=== PATIENT | male | born 1955 | race Two or more races ===

== ENCOUNTER 2024-07-11 06:25 | Inpatient (IN) | payer MEDICARE, OTHER ==
[~2024-07-11] VITALS: Ht 180.3 cm; Wt 90.3 kg
[~2024-07-11 06:25] MED LIST: EMPA1TAB3 PO
--- NOTE | 2024-07-11 07:35 | ED.PDOC ---
History of Present Illness HPI Comments 68 y/o M, Hx of bladder CA, DM, cholecystectomy, and thyroidectomy, presents with c/o non-radiating, right-sided flank pain for the past 2x days, today. Patient endorses on pain during initial onset being diffused 2x days ago prior to then localizing to his right flank area, with pain, suddenly, worsening, last night. Patients comments on Hx of left-nephrectomy that was removed, due to kidney cancer. He reports no additional relevant or pertinent Hx, such as recent injuries, sick contact, or spoiled food intake. He denies having any nausea, vomiting, urinary symptoms, fever, chills, or other associated symptoms or modifiers at this time. Chief Complaint: Flank Pain Time Seen by MD: 06:25 Reviewed Notes: Nurses Notes, Medications, Allergies Allergies: Coded Allergies: Sulfa Antibiotics (Verified Allergy, Unknown, 07/11/24) Information Source: Patient Mode of Arrival: Ambulatory Severity: Moderate Timing: Days Duration: Since onset Prehospital treatment: None Past Medical History PAST MEDICAL HISTORY: Cancer (left kidney and bladder CA), DM, Thyroid Surgical History: Cholecystectomy, Thyroidectomy Surgical History (Other): left nephrectomy s/p CA Family History Family History: Unknown Social History Smoker: Non-Smoker Alcohol: Denies ETOH Use Drugs: Denies Drug Use Lives In: Home Genitourinary: reports: flank pain All Other Systems: Reviewed and Negative (negative unless otherwise stated above or in HPI) Physical Exam General Appearance: Moderate Distress HEENT: Normal ENT Inspection, Pharynx Normal, TMs Normal Neck: Full Range of Motion, Non-Tender, Normal, Normal Inspection Respiratory: Chest Non-Tender, Lungs Clear, No Accessory Muscle Use, No Respiratory Distress, Normal Breath Sounds Cardiovascular: No Edema, No JVD, No Murmur, No Gallop, Normal Peripheral Pulses, Regular Rate/Rhythm Breast Exam: Deferred Gastrointestinal: No Organomegaly, Non Tender, No Pulsatile Mass, Normal Bowel Sounds, Soft Genitalia: Deferred Pelvic: Deferred Rectal: Deferred Extremities: No calf tenderness, Normal capillary refill, Normal inspection, Normal range of motion, Non-tender, No pedal edema Musculoskeletal : Apperance: Normal Neurologic: Alert, brick sorter II-XII nml as Tested, No Motor Deficits, Normal Affect, Normal Mood, No Sensory Deficits Cerebellar Function: Normal Reflexes: Normal Skin: Dry, Normal Color, Warm Peripheral Pulses: 3+ Radial (R), 3+ Radial (L) Lymphatic: No Adenopathy Was a procedure done? Was a procedure done?: No Differential Dx Considerations may include: nephrolithiasis, pyelonephritis, cystitis, musculoskeletal pain X-Ray, Labs, Meds, VS Vital Signs Date Time Temp Pulse Resp B/P (MAP) Pulse Ox O2 Delivery O2 Flow Rate FiO2 07/11/24 09:29 52 16 134/79 (97) 100 07/11/24 09:27 52 16 134/79 07/11/24 07:44 50 20 129/90 07/11/24 07:21 50 16 123/90 (101) 100 07/11/24 06:34 97.6 60 16 127/47 (73) 99 Lab Test 07/11/24 07:17 07/11/24 04:00 Range/Units White Blood Count 9.7 4.4-10.8 10^3/uL Red Blood Count 4.84 4.5-5.90 10^6/uL Hemoglobin 14.2 13.5-17.5 g/dL Hematocrit 41.4 41.0-53.0 % Mean Corpuscular Volume 85.5 80.0-100.0 fL Mean Corpuscular Hemoglobin 29.3 28.0-32.0 pg Mean Corpuscular Hemoglobin Concent 34.3 32.0-36.0 g/dL Red Cell Distribution Width 14.1 11.8-14.3 % Platelet Count 84 L 140-450 10^3/uL Mean Platelet Volume 9.3 6.9-10.8 fL Neutrophils (%) (Auto) 86.7 H 37.0-80.0 % Lymphocytes (%) (Auto) 4.5 L 10.0-50.0 % Monocytes (%) (Auto) 7.2 0.0-12.0 % Eosinophils (%) (Auto) 1.3 0.0-7.0 % Basophils (%) (Auto) 0.3 0.0-2.0 % Neutrophils # (Auto) 8.4 1.6-8.6 10 ^3/uL Lymphocytes # (Auto) 0.4 0.4-5.4 10 ^3/uL Monocytes # (Auto) 0.7 0-1.3 10 ^3/uL Eosinophils # (Auto) 0.1 0-0.8 10 ^3/uL Basophils # (Auto) 0 0-0.2 10 ^3/uL Nucleated Red Blood Cells 0.0 % Sodium Level 136 136-145 mmol/L Potassium Level 4.7 3.5-5.1 mmol/L Chloride Level 104 98-107 mmol/L Carbon Dioxide Level 22 20-31 mmol/L Anion Gap 10 5-15 Blood Urea Nitrogen 62 H 9-23 mg/dL Creatinine 5.65 H 0.700-1.30 mg/dL Glomerular Filtration Rate Calc 10 >90 mL/min BUN/Creatinine Ratio 11.0 10.0-20.0 Serum Glucose 125 H 74-106 mg/dL Hemoglobin A1c 5.6 <5.7 % A1C Calcium Level 9.6 8.7-10.4 mg/dL Triglycerides Level 104 < 150 mg/dL Cholesterol Level 165 < 200 mg/dL LDL Cholesterol 110 H < 100 mg/dL HDL Cholesterol 39 L 40-59 mg/dL Thyroid Stimulating Hormone (TSH) 2.26 0.55-4.78 uIU/mL Urine Color Light-yellow Yellow Urine Clarity Clear Clear Urine pH 5.0 5.0-9.0 Urine Specific [place] 1.011 1.001-1.035 Urine Protein Negative Negative Urine Ketones Negative Negative Urine Blood 2+ H Negative /uL Urine Nitrite Negative Negative Urine Bilirubin Negative Negative Urine Urobilinogen Normal Negative mg/dL Urine Leukocyte Esterase 1+ Negative /uL Urine RBC 3 0 - 3 /hpf Urine WBC 9 0 - 3 /hpf Urine Squamous Epithelial Cells Few <5 /hpf Urine Bacteria None seen None Seen /hpf Urine Glucose 3+ H Normal mg/dL Current Medications Medications (Trade) Dose Ordered Sig/Alice Route Start Time Stop Time Status Last Admin Ondansetron HCl (Zofran) 4 mg ONCE ONCE IV 07/11/24 07:00 07/11/24 07:01 DC 07/11/24 07:44 Sodium Chloride 1,000 ml @ 1,000 mls/hr Q1H ONCE IVB 07/11/24 07:00 07/11/24 07:59 DC 07/11/24 07:37 Morphine Sulfate 4 mg ONCE ONCE IV 07/11/24 07:00 07/11/24 07:01 DC 07/11/24 07:44 Patient alert. Complaining of right flank pain. Vitals stable. Answering all questions. Establish intravenous access. Was given fluids. WBC within normal limits. Hemoglobin within normal limits. Was given morphine. Was given Zofran. Continues to have abdominal pain. Reviewed his previous history. Explained to the patient. Continue cardiac monitoring. [address] [address] Ph: [phone] DIAGNOSTIC IMAGING Diagnostic Imaging Report : [id number] Signed PATIENT: NAILA BELLA ACCT: [id number] UNIT: [id number] : 1955 LOC: ER ROOM / BED: / AGE / SEX: 68 / M ADM STATUS: REG ER SERVICE 0945 ORDERING PHYSICIAN: MEGHANN DE LEON MD PROCEDURE(s): ABPL - CT AB PEL WO CON-NO ORAL OR IV REASON: stone ORDER NUMBER(s): [id number], ACCESSION NUMBER(s): [id number] Exam: CT CT AB PEL WO CON-NO ORAL OR IV History: stone Comparison Study: None available at time of dictation. Technique: Multidetector spiral CT of the abdomen and pelvis was performed from lung bases to pubic symphysis. Imaging was performed without intravenous contrast. Coronal and sagittal multiplanar reformats were obtained from the axial data set by the technologist. Radiation Dose : 1. Abdomen/Pelvis: CTDIvol 19.3 mGy, DLP 1297.6 mGy*cm. Findings: Evaluation of vasculature and solid organs is limited due to lack of intravenous contrast use. Lung Bases: Lung bases are clear. Visualized portions of the heart and pericardium are unremarkable. Liver: The liver is normal in size. No focal lesions. Gallbladder and Biliary Tree: The gallbladder is surgically absent. No intrahepatic or extrahepatic biliary ductal dilatation. Spleen: Unremarkable Pancreas: The pancreas is grossly unremarkable. Adrenal Glands: Unremarkable Kidneys: Mild right hydroureteronephrosis due to 9 mm obstructive proximal right ureteral calculus. Left kidney is absent. There is a cystic structure in the left retroperitoneum measuring 3.0 cm. GI tract: The stomach is grossly normal in appearance. No evidence of small bowel wall thickening or abnormal dilatation to suggest bowel obstruction. Sigmoid diverticulosis without acute diverticulitis. The appendix is visualized and is normal. Peritoneum/mesentery/retroperitoneum. No evidence of free intraperitoneal air. Trace pelvic free fluid. No evidence of suspicious lymphadenopathy. Abdominal Wall: Unremarkable. Vasculature: The visualized abdominal aorta is normal in size and caliber. Evaluation of abdominal and pelvic vessels is limited due to lack of intravenous contrast. Urinary Bladder: Grossly unremarkable for degree of distention. Pelvic Organs: Unremarkable Musculoskeletal: No aggressive focal bony lesions, acute fractures or dislocation. IMPRESSION: 1. Acute obstructive uropathy due to 9 mm proximal right ureteral calculus. 2. Status post left nephrectomy. Cystic structure in the left retroperitoneum could be related to sequela of the previous surgery. 3. Trace pelvic free fluid. 4. Sigmoid diverticulosis without acute diverticulitis. ATED BY: SAPNA WHEELER MD DICTATED DATE/TIME: 07/11/24 1029 SIGNED BY: SAPNA WHEELER MD SIGNED DATE/TIME: 07/11/24 1029 CC: Time of 1ST Reevaluation: 06:55 Reevaluation 1ST: Unchanged Patient Education/Counseling: Diagnosis, Treatment Family Education/Counseling: No Family Present Departure 1 Departure Time of Disposition: 07:43 Impression: Primary Impression: Acute abdominal pain Disposition: ADMITTED INPATIENT Admit to: Med Surg Condition: Guarded Critical Care Note Critical Care Time?: No Stability Stability form required: No Heart Score Heart Score: Heart Score Response (Comments) Value History N/A 0 EKG N/A 0 Age N/A 0 Risk Factors N/A 0 Troponin N/A 0 Total 0 I personally scribed for MEGHANN DE LEON MD ([email or web address]) on 07/11/24 at 07:35. Electronically submitted by Erich Johnson ([email or web address]). I personally scribed for MEGHANN DE LEON MD ([email or web address]) on 07/11/24 at 17:00. Electronically submitted by Erich Johnson ([email or web address]). MEGHANN DE LEON MD Jul 11, 2024 07:35
[2024-07-11 07:37] LABS: Basophils # (auto) 0 10 ^3/uL (0-0.2); Basophils % (auto) 0.3 % (0.0-2.0); Eosinophils # (auto) 0.1 10 ^3/uL (0-0.8); Eosinophils % (auto) 1.3 % (0.0-7.0); Hematocrit 41.4 % (41.0-53.0); Hemoglobin 14.2 g/dL (13.5-17.5); Lymphocytes # (auto) 0.4 10 ^3/uL (0.4-5.4); Lymphocytes % (auto) 4.5 % (10.0-50.0); Mean Corpuscular Hemoglobin 29.3 pg (28.0-32.0); Mean Corpuscular Hgb Conc. 34.3 g/dL (32.0-36.0); Mean Corpuscular Volume 85.5 fL (80.0-100.0); Monocytes # (auto) 0.7 10 ^3/uL (0-1.3); Monocytes % (auto) 7.2 % (0.0-12.0); Neutrophils # (auto) 8.4 10 ^3/uL (1.6-8.6); Neutrophils % (auto) 86.7 % (37.0-80.0); Platelet Count (auto) 84 10^3/uL (140-450); Red Blood Cells 4.84 10^6/uL (4.5-5.90); Red Cell Distribution Width 14.1 % (11.8-14.3); White Blood Cell 9.7 10^3/uL (4.4-10.8)
[2024-07-11] MEDS: SODIUM CHLORIDE 0.9% 1,000 ML IVB ONE (07:37)
[2024-07-11 07:40] LABS: Chloride 104 mmol/L (98-107); Potassium 4.7 mmol/L (3.5-5.1); Sodium 136 mmol/L (136-145)
[2024-07-11 07:41] LABS: Anion Gap 10 (5-15); Carbon Dioxide 22 mmol/L (20-31)
[2024-07-11 07:42] LABS: Calcium 9.6 mg/dL (8.7-10.4)
[2024-07-11] MEDS: ONDANSETRON HCL 4 MG/2 ML VIAL IV ONE (07:44)
[2024-07-11] MEDS: MORPHINE SULFATE 4 MG/ML SYR/VIAL IV ONE (07:44)
[2024-07-11 07:52] LABS: Blood Urea Nitrogen 62 mg/dL (9-23); Glucose 125 mg/dL (74-106)
[2024-07-11 09:29] LABS: Urine Bacteria None Seen /hpf (None Seen)
[2024-07-11 09:49] LABS: Urine Blood 2+ /uL (Negative); Urine Clarity Clear (Clear); Urine Color Light-Yellow (Yellow); Urine Protein, UAD Negative (Negative); Urine Specific Gravity 1.011 (1.001-1.035); Urine Squamous Epithelial Cell FEW /hpf (<5); Urine Urobilinogen Normal (Negative); Urine WBC 9 /hpf (0 - 3)
--- NOTE | 2024-07-11 10:31 | DVH ---
Exam: CT CT AB PEL WO CON-NO ORAL OR IV History: stone Comparison Study: None available at time of dictation. Technique: Multidetector spiral CT of the abdomen and pelvis was performed from lung bases to pubic s ymphysis. Imaging was performed without intravenous contrast. Coronal and sagittal multiplanar refor mats were obtained from the axial data set by the technologist. Radiation Dose : 1. Abdomen/Pelvis: CTDIvol 19.3 mGy, DLP 1297.6 mGy*cm. Findings: Evaluation of vasculature and solid organs is limited due to lack of intravenous contrast use. Lung Bases: Lung bases are clear. Visualized portions of the heart and pericardium are unremarkable. Liver: The liver is normal in size. No focal lesions. Gallbladder and Biliary Tree: The gallbladder is surgically absent. No intrahepatic or extrahepatic biliary ductal dilatation. Spleen: Unremarkable Pancreas: The pancreas is grossly unremarkable. Adrenal Glands: Unremarkable Kidneys: Mild right hydroureteronephrosis due to 9 mm obstructive proximal right ureteral calculus. L eft kidney is absent. There is a cystic structure in the left retroperitoneum measuring 3.0 cm. GI tract: The stomach is grossly normal in appearance. No evidence of small bowel wall thickening or abnormal dilatation to suggest bowel obstruction. Sigmoid diverticulosis without acute diverticuliti s. The appendix is visualized and is normal. Peritoneum/mesentery/retroperitoneum. No evidence of free intraperitoneal air. Trace pelvic free flui d. No evidence of suspicious lymphadenopathy. Abdominal Wall: Unremarkable. Vasculature: The visualized abdominal aorta is normal in size and caliber. Evaluation of abdominal a nd pelvic vessels is limited due to lack of intravenous contrast. Urinary Bladder: Grossly unremarkable for degree of distention. Pelvic Organs: Unremarkable Musculoskeletal: No aggressive focal bony lesions, acute fractures or dislocation. IMPRESSION: 1. Acute obstructive uropathy due to 9 mm proximal right ureteral calculus. 2. Status post left nephrectomy. Cystic structure in the left retroperitoneum could be related to seq uela of the previous surgery. 3. Trace pelvic free fluid. 4. Sigmoid diverticulosis without acute diverticulitis.
--- NOTE | 2024-07-11 11:12 | DVHHP2 ---
History of Present Illness Reason for Visit: Right flank pain History of Present Illness This 68-year-old male with past medical history of bladder and kidney carcinoma s/p left nephrectomy, diabetes type 2, thyroidectomy, PPM- sick sinus rhythm, and cholecystectomy, presented in the ED with a chief complaint of right sided flank pain. The patient reports right-sided flank pain started 2-3 days ago and has worsened last night associated with nausea for which prompted the patient to visit the emergency department. Past Medical History As stated in HPI Past Surgical History PPM Cholecystectomy Thyroidectomy Family History Reviewed, non-contributory to the management of this case. Past Social History The patient lives at home, denies smoking, alcohol or illicit drugs abuse. Review of Systems Constitutional: Yes: Malaise; No: Fever, Chills, Sweats, Weakness, Other Eyes: No: Pain, Vision change, Conjunctivae inflammation, Eyelid inflammation, Other, Redness ENT: No: Ear pain, Ear discharge, Nose pain, Nose discharge, Nose congestion, Mouth pain, Mouth swelling, Throat pain, Throat swelling, Other Respiratory: No: Cough, Dry, Shortness of breath, SOB with excertion, Wheezing, Hemoptysis, Pleuritic Pain, Sputum, Wheezing, Other Cardiovascular: No: Chest Pain, Palpitations, Orthopnea, Paroxysmal Noc. Dyspnea, Edema, Lt Headedness, Other Gastrointestinal: Nausea; No: Vomiting, Abdominal Pain, Diarrhea, Constipation, Melena, Hematochezia, Other Genitourinary: No Dysuria, No Frequency, No Incontinence; Hematuria; No Retention; Other (Right flank pain) Musculoskeletal: No: other, neck pain, shoulder pain, arm pain, back pain, hand pain, leg pain, foot pain Skin: No: Rash, Lesions, Jaundice, Bruising, Other Neurological: No: Weakness, Numbness, Incoordination, Change in speech, Confusion, Seizures, Other Allergies: Coded Allergies: Sulfa Antibiotics (Verified Allergy, Unknown, 07/11/24) Exam Vital Signs Vital Signs Date Time Temp Pulse Resp B/P (MAP) Pulse Ox O2 Delivery O2 Flow Rate FiO2 07/11/24 09:29 52 16 134/79 (97) 100 07/11/24 06:34 97.6 General Appearance: Alert, Oriented X3, Cooperative, mild distress HEENT: Atraumatic, PERRLA, EOMI, Mucous membr. moist/pink Respiratory: Clear to auscultation, Normal air movement Cardiovascular: Regular rate, Normal S1, Normal S2 Abdominal: Normal bowel sounds, Soft, No hepatospenomegaly, Other (Right CVA tenderness) Extremities: No clubbing, No cyanosis, No edema, Normal pulses, No tenderness/swelling Skin: No rashes, No breakdown, No significant lesion Neuro: Normal gait, Normal speech, Normal tone Psych/Mental Status: Mental status NL Labs/Xrays Labs Test 07/11/24 07:17 07/11/24 04:00 Range/Units White Blood Count 9.7 4.4-10.8 10^3/uL Red Blood Count 4.84 4.5-5.90 10^6/uL Hemoglobin 14.2 13.5-17.5 g/dL Hematocrit 41.4 41.0-53.0 % Mean Corpuscular Volume 85.5 80.0-100.0 fL Mean Corpuscular Hemoglobin 29.3 28.0-32.0 pg Mean Corpuscular Hemoglobin Concent 34.3 32.0-36.0 g/dL Red Cell Distribution Width 14.1 11.8-14.3 % Platelet Count 84 L 140-450 10^3/uL Mean Platelet Volume 9.3 6.9-10.8 fL Neutrophils (%) (Auto) 86.7 H 37.0-80.0 % Lymphocytes (%) (Auto) 4.5 L 10.0-50.0 % Monocytes (%) (Auto) 7.2 0.0-12.0 % Eosinophils (%) (Auto) 1.3 0.0-7.0 % Basophils (%) (Auto) 0.3 0.0-2.0 % Neutrophils # (Auto) 8.4 1.6-8.6 10 ^3/uL Lymphocytes # (Auto) 0.4 0.4-5.4 10 ^3/uL Monocytes # (Auto) 0.7 0-1.3 10 ^3/uL Eosinophils # (Auto) 0.1 0-0.8 10 ^3/uL Basophils # (Auto) 0 0-0.2 10 ^3/uL Nucleated Red Blood Cells 0.0 % Sodium Level 136 136-145 mmol/L Potassium Level 4.7 3.5-5.1 mmol/L Chloride Level 104 98-107 mmol/L Carbon Dioxide Level 22 20-31 mmol/L Anion Gap 10 5-15 Blood Urea Nitrogen 62 H 9-23 mg/dL Creatinine 5.65 H 0.700-1.30 mg/dL Glomerular Filtration Rate Calc 10 >90 mL/min BUN/Creatinine Ratio 11.0 10.0-20.0 Serum Glucose 125 H 74-106 mg/dL Calcium Level 9.6 8.7-10.4 mg/dL Urine Color Light-yellow Yellow Urine Clarity Clear Clear Urine pH 5.0 5.0-9.0 Urine Specific [place] 1.011 1.001-1.035 Urine Protein Negative Negative Urine Ketones Negative Negative Urine Blood 2+ H Negative /uL Urine Nitrite Negative Negative Urine Bilirubin Negative Negative Urine Urobilinogen Normal Negative mg/dL Urine Leukocyte Esterase 1+ Negative /uL Urine RBC 3 0 - 3 /hpf Urine WBC 9 0 - 3 /hpf Urine Squamous Epithelial Cells Few <5 /hpf Urine Bacteria None seen None Seen /hpf Urine Glucose 3+ H Normal mg/dL Assessment/Plan Assessment/Plan # acute renal failure, possible due to obstruction # right flank pain # acute obstructive uropathy due to 9 mm proximal right ureter calculus # hematuria # hx of bladder and left kidney carcinoma s/p left nephrectomy Admit to medical unit Urology consult Nephrology consult IV fluid Ultrasound of the kidney pending Pain control Tamsulosin Indwelling urinary catheter Strain urine Avoid anticoags/antiplatelets # diabetes type 2 ISS Check A1c # hypothyroidism s/p thyroidectomy check tsh # presence of permanent pacemaker # Hx of Sick Sinus Syndrome DVT prophylaxis with SCD Medical plan discussed with patient and spouse Plan discussed with: Patient Date of Service: Jul 11, 2024 Billing Provider: MY IBARRA Common Visit Codes: [id number] INP/OBS CARE (HIGH) MY IBARRA Jul 11, 2024 11:12
[2024-07-11] MEDS ORDERED: DEXTROSE (50%) 50ML SYRG IV PRN (11:15)
[2024-07-11] MEDS ORDERED: ONDANSETRON HCL 4 MG/2 ML VIAL IV PRN (11:15)
--- NOTE | 2024-07-11 12:00 | DVH ---
INDICATION: Right flank pain TECHNIQUE: Multiple real-time sonographic images of the kidneys and bladder were obtained. COMPARISON: CT of the abdomen pelvis same date FINDINGS: The right kidney measures 13.4 cm in length, which is normal in size. There is normal echogenicity of the right kidney. Punctate calculus in the lower pole measuring 0.4 cm. Mild right hydronephrosis l ikely related to right ureteral calculus not visualized on this study, visualized on CT same date. The left kidney is surgically absent. No large intraluminal masses are seen in the bladder. Prior to voiding the bladder volume measures volume 3.7 cc. Following voiding, the bladder volume residual measures 0 cc. IMPRESSION: 1. Nonobstructive 0.4 cm calculus in the right kidney lower pole. Mild right hydronephrosis. Right u reteral calculus seen on CT same date is not visualized which is likely the cause of the right hydron ephrosis. 2. Surgically absent left kidney.
[2024-07-11 12:05] LABS: Triglycerides 104 mg/dL (< 150)
[2024-07-11 12:07] LABS: Cholesterol 165 mg/dL (< 200); HDL Cholesterol 39 mg/dL (40-59); LDL Cholesterol 110 mg/dL (< 100)
[2024-07-11] MEDS: ACCU-CHEK COMFORT CURVE STRIP VI SCH (12:37)
[2024-07-11] MEDS: InsuLIN REG 1unit/0.01ml Soln (100units/ml) SC SCH (12:37)
[2024-07-11] MEDS: TAMSULOSIN HYDROCHLORIDE 0.4 MG CAP PO ONE (12:42)
[2024-07-11] MEDS: SODIUM CHLORIDE 0.9% 1,000 ML IV SCH (14:29)
--- NOTE | 2024-07-11 16:42 | DVHINCON2 ---
Date of service: Jul 11, 2024 Referring Physician Mary Roche NP Reason for Consultation MYRNA History of Present Illness Mr. Stafford is a 68-year-old male with known history of solitary right kidney, diabetes who presented for further evaluation and management of acute onset of right-sided flank pain. His course in the emergency department notable for diagnostics that revealed obstructive uropathy of right kidney due to nephrolithiasis. His serum creatinine is elevated to the 5 range. He was seen in the emergency department resting comfortably. he denies history of gross hematuria, hemoptysis. + Subjective fever. Past Medical History bladder CA Renal cell carcinoma status post left nephrectomy Diabetes Past Surgical History as stated above Allergies: Coded Allergies: Sulfa Antibiotics (Verified Allergy, Unknown, 07/11/24) Current Medications Current Medications Medications (Trade) Dose Ordered Sig/Alice Route PRN Reason Start Time Stop Time Status Last Admin Acetaminophen/ Hydrocodone Bitart ([place] 5/325MG Tab) 1 tab Q4HP PRN PO MODERATE PAIN (4-6 PAIN SCALE) 07/11/24 11:15 Ondansetron HCl (Zofran) 4 mg Q4HP PRN IV NAUSEA / VOMITING 07/11/24 11:15 Acetaminophen (Tylenol Tablet) 650 mg Q6HP PRN PO PAIN SCALE 1-3 OR TEMP>100.4 07/11/24 11:15 Morphine Sulfate 2 mg Q4HPRN PRN IV SEVERE PAIN (7-10 PAIN SCALE) 07/11/24 11:15 Tamsulosin HCl (Flomax) 0.4 mg QPM PO 07/12/24 18:00 Sodium Chloride 1,000 ml @ 100 mls/hr Q10H IV 07/11/24 11:15 Diagnostic Test (Pha) (Accu-Chek Comfort Curve T) 1 strip ACHS 07/11/24 11:30 07/11/24 12:42 Insulin Human Regular (InsuLIN R) ACHS SC 07/11/24 11:30 Dextrose 50 ml UD PRN IV Blood Sugar LESS THAN 60 07/11/24 11:15 Review of Systems as per history of present illness otherwise all systems reviewed and are noncontributory H&P Exam Vital Signs/I&O Vital Sign Date Time Temp Pulse Resp B/P (MAP) Pulse Ox O2 Delivery O2 Flow Rate FiO2 07/11/24 09:29 52 16 134/79 (97) 100 07/11/24 06:34 97.6 Physical Exam gen: nad, nc lungs: cta cvs: no rub abd: soft ext: no edema skin: no rash Labs/Diagnostic Data Labs/Diagnostic Data Laboratory Tests Test 07/11/24 12:32 07/11/24 07:17 07/11/24 04:00 Range/Units POC Glucose 90 70-106 mg/dl White Blood Count 9.7 4.4-10.8 10^3/uL Red Blood Count 4.84 4.5-5.90 10^6/uL Hemoglobin 14.2 13.5-17.5 g/dL Hematocrit 41.4 41.0-53.0 % Mean Corpuscular Volume 85.5 80.0-100.0 fL Mean Corpuscular Hemoglobin 29.3 28.0-32.0 pg Mean Corpuscular Hemoglobin Concent 34.3 32.0-36.0 g/dL Red Cell Distribution Width 14.1 11.8-14.3 % Platelet Count 84 L 140-450 10^3/uL Mean Platelet Volume 9.3 6.9-10.8 fL Neutrophils (%) (Auto) 86.7 H 37.0-80.0 % Lymphocytes (%) (Auto) 4.5 L 10.0-50.0 % Monocytes (%) (Auto) 7.2 0.0-12.0 % Eosinophils (%) (Auto) 1.3 0.0-7.0 % Basophils (%) (Auto) 0.3 0.0-2.0 % Neutrophils # (Auto) 8.4 1.6-8.6 10 ^3/uL Lymphocytes # (Auto) 0.4 0.4-5.4 10 ^3/uL Monocytes # (Auto) 0.7 0-1.3 10 ^3/uL Eosinophils # (Auto) 0.1 0-0.8 10 ^3/uL Basophils # (Auto) 0 0-0.2 10 ^3/uL Nucleated Red Blood Cells 0.0 % Sodium Level 136 136-145 mmol/L Potassium Level 4.7 3.5-5.1 mmol/L Chloride Level 104 98-107 mmol/L Carbon Dioxide Level 22 20-31 mmol/L Anion Gap 10 5-15 Blood Urea Nitrogen 62 H 9-23 mg/dL Creatinine 5.65 H 0.700-1.30 mg/dL Glomerular Filtration Rate Calc 10 >90 mL/min BUN/Creatinine Ratio 11.0 10.0-20.0 Serum Glucose 125 H 74-106 mg/dL Hemoglobin A1c 5.6 <5.7 % A1C Calcium Level 9.6 8.7-10.4 mg/dL Triglycerides Level 104 < 150 mg/dL Cholesterol Level 165 < 200 mg/dL LDL Cholesterol 110 H < 100 mg/dL HDL Cholesterol 39 L 40-59 mg/dL Thyroid Stimulating Hormone (TSH) 2.26 0.55-4.78 uIU/mL Urine Color Light-yellow Yellow Urine Clarity Clear Clear Urine pH 5.0 5.0-9.0 Urine Specific [place] 1.011 1.001-1.035 Urine Protein Negative Negative Urine Ketones Negative Negative Urine Blood 2+ H Negative /uL Urine Nitrite Negative Negative Urine Bilirubin Negative Negative Urine Urobilinogen Normal Negative mg/dL Urine Leukocyte Esterase 1+ Negative /uL Urine RBC 3 0 - 3 /hpf Urine WBC 9 0 - 3 /hpf Urine Squamous Epithelial Cells Few <5 /hpf Urine Bacteria None seen None Seen /hpf Urine Glucose 3+ H Normal mg/dL Assessment IMP: 1) MYRNA insetting of obstructive uropathy of solitary kidney 2) nephrolithiasis 3) CKD IIIb? 2/2 Solitary kidney / DM II 4) DM II REC: - Agree with supportive measures, IV fluids, pain control - Urology evaluation for definitive plan of care - Avoidance of NSAIDs, intravenous contrast studies if able - Currently without urgent indication for dialysis, we will continue to monitor closely. Thank you for the consultation. Plan discussed with: Other LOLIS PAIZ MD Jul 11, 2024 16:42
[2024-07-11 21:00] VITALS: BP 119/59; PULSE 58; RESP 20; TEMP 98.2; O2SAT 98
[2024-07-11 22:51] VITALS: PULSE 55; RESP 10; O2SAT 97
[2024-07-12] VITALS (11 sets, daily range): BP systolic 104–129; BP diastolic 58–76; PULSE 50–60; RESP 12–21; TEMP 97.6–98.6; O2SAT 95–100
[2024-07-12] MEDS ORDERED: EMPA1TAB PO (00:59)
[2024-07-12 06:13] LABS: Basophils # (auto) 0 10 ^3/uL (0-0.2); Basophils % (auto) 0.3 % (0.0-2.0); Eosinophils # (auto) 0.1 10 ^3/uL (0-0.8); Eosinophils % (auto) 1.5 % (0.0-7.0); Hematocrit 34.2 % (41.0-53.0); Lymphocytes # (auto) 0.4 10 ^3/uL (0.4-5.4); Lymphocytes % (auto) 7.8 % (10.0-50.0); Mean Corpuscular Hemoglobin 29.4 pg (28.0-32.0); Mean Corpuscular Hgb Conc. 35.1 g/dL (32.0-36.0); Mean Corpuscular Volume 83.6 fL (80.0-100.0); Monocytes # (auto) 0.5 10 ^3/uL (0-1.3); Monocytes % (auto) 9.5 % (0.0-12.0); Neutrophils # (auto) 4.3 10 ^3/uL (1.6-8.6); Neutrophils % (auto) 80.9 % (37.0-80.0); Platelet Count (auto) 68 10^3/uL (140-450); Red Blood Cells 4.09 10^6/uL (4.5-5.90); Red Cell Distribution Width 13.7 % (11.8-14.3); White Blood Cell 5.3 10^3/uL (4.4-10.8)
[2024-07-12 06:47] LABS: Alanine Aminotransferase 11 U/L (7-40); Albumin 3.4 g/dL (3.2-4.8); Alkaline Phosphatase 61 U/L (46-116); Anion Gap 13 (5-15); BUN/Creatinine Ratio 10.4 (10.0-20.0); Calcium 8.8 mg/dL (8.7-10.4); Chloride 101 mmol/L (98-107); Potassium 4.4 mmol/L (3.5-5.1)
[2024-07-12 06:48] LABS: Bilirubin, Total 1.2 mg/dL (0.2-1.0)
[2024-07-12 06:53] LABS: Carbon Dioxide 18 mmol/L (20-31); Glucose 118 mg/dL (74-106); Sodium 132 mmol/L (136-145)
[2024-07-12 06:54] LABS: Aspartate Aminotransferase 12 U/L (13-40); Total Protein 5.4 g/dL (5.7-8.2)
[2024-07-12 06:55] LABS: Blood Urea Nitrogen 86 mg/dL (9-23)
--- NOTE | 2024-07-12 09:18 | DVHINCON2 ---
Date of service: Jul 12, [address] Zazueta Reason for Consultation obstructive uropathy History of Present Illness History Source: Patient, Spouse/Significant Other, RN Notes, MD Notes, Old Records Exam Limitations: No limitations HPI 68 yo male with PMH of kidney and bladder cancer s/p left nephroureterectomy 2019 in the [facility], by Dr. Gonzalez. Last surveillance cystoscopy was 02/2024 ad there was no recurrence noted. He is visiting family in this area and presented to ER with c/o of sudden left flank pain. On arrival he was noted to have poor urine output and elevated creatinine. CT A/P NC showed an obstructing stone in the right proximal ureter approx 9 mm with moderate hydro. A head was placed with some difficulty and there has been no urine output. Bladder scan was performed showing 3 mls. He is seen in 285a with his at the bedside. He denies pain at this time. He c/o chest pressure and headache. He was seen at [facility] in April for gross hematuria and CT at that time showed a lower pole stone measuring 8 mm on the right. Prostate is 4.5 cm. Baseline creatinine is 1.3 per labs viewed on [employer]. He is pending right nephrostomy placement scheduled for this afternoon. I attempted to reach Dr. Gonzalez at [phone] for courtesy call regarding mutual patient. Home Meds Reported Medications Empagliflozin (Jardiance) 10 Mg Tab, 10 MG PO, TAB 07/12/24 Past Medical History Hemotology/Oncology: Cancer Renal/: Benign prostatic enlarg., Hematuria, Other (kidney and bladder cancer) Patient Family History: Diabetes mellitus G8 FATHER Review of Systems Comments see HPI H&P Exam Vital Signs Vital Signs Date Time Temp Pulse Resp B/P (MAP) Pulse Ox O2 Delivery O2 Flow Rate FiO2 07/12/24 05:00 97.6 50 16 125/64 (84) 100 97.6 07/12/24 00:18 Room Air* 0 21 General Appeara: Well developed, Well nourished, Normal Appearance Pulmonary/Respiratory: Normal inspection, Normal breath sounds, Chest non- tender, Lungs clear Cardiovascular/Chest: Normal inspection, Regular rate, Normal Rhythm Abdominal Exam: Normal bowel sounds, Soft, No tenderness, No hepatospenomegaly, No masses Rectal Exam: Deferred Back Exam: Normal inspection Male Genital Exam: Normal genitalia Neuro/Mental St: Alert, Oriented Appearance: Appropriate appearance, Appropriate insight Eye contact/ Speech: Cooperative, Good eye contact, Normal speech Skin Exam: Normal inspection, Normal color, Warm/dry Labs/Xrays [facility] [address] [place] [id number] Ph: [phone] DIAGNOSTIC IMAGING Diagnostic Imaging Report : [id number] Signed PATIENT: ROSHAN BELLAT: [id number] UNIT: [id number] : 1955 LOC: ER ROOM / BED: / AGE / SEX: 68 / M ADM STATUS: REG ER SERVICE ORDERING PHYSICIAN: MEGHANN DE LEON MD PROCEDURE(s): ABPL - CT AB PEL WO CON-NO ORAL OR IV REASON: stone ORDER NUMBER(s): [id number], ACCESSION NUMBER(s): [id number] Exam: CT CT AB PEL WO CON-NO ORAL OR IV History: stone Comparison Study: None available at time of dictation. Technique: Multidetector spiral CT of the abdomen and pelvis was performed from lung bases to pubic symphysis. Imaging was performed without intravenous contrast. Coronal and sagittal multiplanar reformats were obtained from the ax ia data set by the technologist. Radiation Dose : 1. Abdomen/Pelvis: CTDIvol 19.3 mGy, DLP 1297.6 mGy*cm. Findings: Evaluation of vasculature and solid organs is limited due to lack of intravenous contrast use. Lung Bases: Lung bases are clear. Visualized portions of the heart and pericardium are unremarkable. Liver: The liver is normal in size. No focal lesions. Gallbladder and Biliary Tree: The gallbladder is surgically absent. No intrahepatic or extrahepatic biliary ductal dilatation. Spleen: Unremarkable Pancreas: The pancreas is grossly unremarkable. Adrenal Glands: Unremarkable Kidneys: Mild right hydroureteronephrosis due to 9 mm obstructive proximal right ureteral calculus. Left kidney is absent. There is a cystic structure in the left retroperitoneum measuring 3.0 cm. GI tract: The stomach is grossly normal in appearance. No evidence of small bowel wall thickening or abnormal dilatation to suggest bowel obstruction. Sigmoid diverticulosis without acute diverticulitis. The appendix is visualized and is normal. Peritoneum/mesentery/retroperitoneum. No evidence of free intraperitoneal air. Trace pelvic free fluid. No evidence of suspicious lymphadenopathy. Abdominal Wall: Unremarkable. Vasculature: The visualized abdominal aorta is normal in size and caliber. Evaluation of abdominal and pelvic vessels is limited due to lack of intravenous contrast. Urinary Bladder: Grossly unremarkable for degree of distention. Pelvic Organs: Unremarkable Musculoskeletal: No aggressive focal bony lesions, acute fractures or dislocation. IMPRESSION: 1. Acute obstructive uropathy due to 9 mm proximal right ureteral calculus. 2. Status post left nephrectomy. Cystic structure in the left retroperitoneum could be related to sequela of the previous surgery. 3. Trace pelvic free fluid. 4. Sigmoid diverticulosis without acute diverticulitis. ATED BY: SAPNA WHEELER MD DICTATED DATE/TIME: 07/11/24 102 SIGNED BY: SAPNA WHEELER MD SIGNED DATE/TIME: 07/11/24 1029 CC: [place] [id number] Ph: [phone] DIAGNOSTIC IMAGING Diagnostic Imaging Report : [id number] Signed PATIENT: JOSE BELLA: [id number] UNIT: [id number] : 1955 LOC: TELE ROOM / BED: [address] [place] [address] AGE / SEX: 68 / M ADM STATUS: ADM IN SERVICE 110 ORDERING PHYSICIAN: MY [employer] PROJECT MANAGER PROCEDURE(s): KIDUS - KIDNEY REASON: Right flank pain ORDER NUMBER(s): [id number], ACCESSION NUMBER(s): [id number] INDICATION: Right flank pain TECHNIQUE: Multiple real-time sonographic images of the kidneys and bladder were obtained. COMPARISON: CT of the abdomen pelvis same date FINDINGS: The right kidney measures 13.4 cm in length, which is normal in size. There is normal echogenicity of the right kidney. Punctate calculus in the lower pole measuring 0.4 cm. Mild right hydronephrosis likely related to right ureteral calculus not visualized on this study, visualized on CT same date. The left kidney is surgically absent. No large intraluminal masses are seen in the bladder. Prior to voiding the bladder volume measures volume 3.7 cc. Following voiding, the bladder volume residual measures 0 cc. IMPRESSION: 1. Nonobstructive 0.4 cm calculus in the right kidney lower pole. Mild right hydronephrosis. Right ureteral calculus seen on CT same date is not visualized which is likely the cause of the right hydronephrosis. 2. Surgically absent left kidney. ATED BY: SAPNA WHEELER MD DICTATED DATE/TIME: 07/11/24 1157 SIGNED BY: SAPNA WHEELER MD SIGNED DATE/TIME: 07/11/24 1157 CC: Labs Test 07/12/24 05:49 07/12/24 05:07 07/11/24 07:17 07/11/24 04:00 Range/Units POC Glucose 119 H 70-106 mg/dl White Blood Count 5.3 # 4.4-10.8 10^3/uL Red Blood Count 4.09 L 4.5-5.90 10^6/uL Hemoglobin 12.0 #L 13.5-17.5 g/dL Hematocrit 34.2 #L 41.0-53.0 % Mean Corpuscular Volume 83.6 80.0-100.0 fL Mean Corpuscular Hemoglobin 29.4 28.0-32.0 pg Mean Corpuscular Hemoglobin Concent 35.1 32.0-36.0 g/dL Red Cell Distribution Width 13.7 11.8-14.3 % Platelet Count 68 L 140-450 10^3/uL Mean Platelet Volume 10.5 6.9-10.8 fL Neutrophils (%) (Auto) 80.9 H 37.0-80.0 % Lymphocytes (%) (Auto) 7.8 L 10.0-50.0 % Monocytes (%) (Auto) 9.5 0.0-12.0 % Eosinophils (%) (Auto) 1.5 0.0-7.0 % Basophils (%) (Auto) 0.3 0.0-2.0 % Neutrophils # (Auto) 4.3 1.6-8.6 10 ^3/uL Lymphocytes # (Auto) 0.4 0.4-5.4 10 ^3/uL Monocytes # (Auto) 0.5 0-1.3 10 ^3/uL Eosinophils # (Auto) 0.1 0-0.8 10 ^3/uL Basophils # (Auto) 0 0-0.2 10 ^3/uL Nucleated Red Blood Cells 0.0 % Sodium Level 132 L 136-145 mmol/L Potassium Level 4.4 3.5-5.1 mmol/L Chloride Level 101 98-107 mmol/L Carbon Dioxide Level 18 L 20-31 mmol/L Anion Gap 13 5-15 Blood Urea Nitrogen 86 #*H 9-23 mg/dL Creatinine 8.30 #H 0.700-1.30 mg/dL Glomerular Filtration Rate Calc 6 >90 mL/min BUN/Creatinine Ratio 10.4 10.0-20.0 Serum Glucose 118 H 74-106 mg/dL Calcium Level 8.8 8.7-10.4 mg/dL Total Bilirubin 1.2 H 0.2-1.0 mg/dL Aspartate Amino Transferase (AST) 12 L 13-40 U/L Alanine Aminotransferase (ALT) 11 7-40 U/L Alkaline Phosphatase 61 46-116 U/L Total Protein 5.4 L 5.7-8.2 g/dL Albumin 3.4 3.2-4.8 g/dL Hemoglobin A1c 5.6 <5.7 % A1C Triglycerides Level 104 < 150 mg/dL Cholesterol Level 165 < 200 mg/dL LDL Cholesterol 110 H < 100 mg/dL HDL Cholesterol 39 L 40-59 mg/dL Thyroid Stimulating Hormone (TSH) 2.26 0.55-4.78 uIU/mL Urine Color Light-yellow Yellow Urine Clarity Clear Clear Urine pH 5.0 5.0-9.0 Urine Specific [place] 1.011 1.001-1.035 Urine Protein Negative Negative Urine Ketones Negative Negative Urine Blood 2+ H Negative /uL Urine Nitrite Negative Negative Urine Bilirubin Negative Negative Urine Urobilinogen Normal Negative mg/dL Urine Leukocyte Esterase 1+ Negative /uL Urine RBC 3 0 - 3 /hpf Urine WBC 9 0 - 3 /hpf Urine Squamous Epithelial Cells Few <5 /hpf Urine Bacteria None seen None Seen /hpf Urine Glucose 3+ H Normal mg/dL Assessment/Plan Problem List: (1) Hydronephrosis with renal and ureteral calculous obstruction (2) MYRNA (acute kidney injury) (3) Renal colic on right side (4) Solitary right kidney Plan NPO consult IR for stat placement of right PCN outpt U[facility] TBA when creatinine normalizes serial BMP MYRNA management per nephrology POC d/w and patient at the bedside, all questions were answered. will follow more than 45 mins for this consultation of which 50% was face to face discussion of plan and review of labs and imaging. Plan discussed with: Patient NICOLETTE KENNY [employer] INS[employer] AGENT Jul 12, 2024 09:18
--- NOTE | 2024-07-12 12:44 | DVHPN2 ---
Reviewed: Care Plan, H&P, Labs, Medications, Previous Orders, Radiology Changes from previous H/P or p: No Changes Eyes: No Pain, No Vision change, No Conjunctivae inflammation, No Eyelid inflammation, No Other, No Redness ENT: No Ear pain, No Ear discharge, No Nose pain, No Nose discharge, No Nose congestion, No Mouth pain, No Mouth swelling, No Throat pain, No Throat swelling, No Other Cardiovascular: No Chest Pain, No Palpitations, No Orthopnea, No Paroxysmal Noc. Dyspnea, No Edema, No Lt Headedness, No Other Respiratory: No Cough, No Dry, No Shortness of breath, No SOB with excertion, No Wheezing, No Hemoptysis, No Pleuritic Pain, No Sputum, No Other Gastrointestinal: Nausea; No Vomiting, No Abdominal Pain, No Diarrhea, No Constipation, No Melena, No Hematochezia, No Other Genitourinary: No Dysuria, No Frequency, No Incontinence; Hematuria; No Retention; Other (Right flank pain) Musculoskeletal: No other, No neck pain, No shoulder pain, No arm pain, No back pain, No hand pain, No leg pain, No foot pain Skin: No Rash, No Lesions, No Jaundice, No Bruising, No Other Objective Vitals Vital Signs Date Time Temp Pulse Resp B/P (MAP) Pulse Ox O2 Delivery O2 Flow Rate FiO2 07/12/24 09:00 98.6 60 14 126/69 (88) 99 98.6 07/12/24 00:18 Room Air* 0 21 Intake/Output Intake and Output 07/12/24 07:00 Intake Total 1150 ml Balance 1150 ml Intake Oral 150 ml IV Total 1000 ml Medications Current Medications Medications Dose Ordered Sig/Alice Route Start Time Stop Time Status Last Admin Dose Admin Acetaminophen/ Hydrocodone Bitart 1 tab Q4HP PRN PO 07/11/24 11:15 Ondansetron HCl 4 mg Q4HP PRN IV 07/11/24 11:15 Acetaminophen 650 mg Q6HP PRN PO 07/11/24 11:15 Morphine Sulfate 2 mg Q4HPRN PRN IV 07/11/24 11:15 Sodium Chloride 1,000 ml @ 100 mls/hr Q10H IV 07/11/24 11:15 07/11/24 21:17 100 MLS/HR Diagnostic Test (Pha) 1 strip ACHS 07/11/24 11:30 07/12/24 07:00 1 STRIP Insulin Human Regular ACHS SC 07/11/24 11:30 Dextrose 50 ml UD PRN IV 07/11/24 11:15 Laboratory Results Laboratory Tests 07/12/24 05:07 Chemistry Test 07/12/24 05:07 Albumin 3.4 g/dL (3.2-4.8) Calcium Level 8.8 mg/dL (8.7-10.4) Total Protein 5.4 g/dL (5.7-8.2) L Coagulation Test 07/12/24 05:07 Prothrombin Time Pending Prothrombin Time INR Pending Activated Partial Thromboplast Time Pending LFT Test 07/12/24 05:07 Alanine Aminotransferase (ALT) 11 U/L (7-40) Alkaline Phosphatase 61 U/L (46-116) Aspartate Amino Transferase (AST) 12 U/L (13-40) L Total Bilirubin 1.2 mg/dL (0.2-1.0) H Urinalysis Test 07/11/24 04:00 Urine Color Light-yellow (Yellow) Urine Clarity Clear (Clear) Urine pH 5.0 (5.0-9.0) Urine Specific [place] 1.011 (1.001-1.035) Urine Protein Negative (Negative) Urine Ketones Negative (Negative) Urine Blood 2+ /uL (Negative) H Urine Nitrite Negative (Negative) Urine Bilirubin Negative (Negative) Urine Urobilinogen Normal mg/dL (Negative) Urine Leukocyte Esterase 1+ /uL (Negative) Urine RBC 3 /hpf (0 - 3) Urine WBC 9 /hpf (0 - 3) Urine Squamous Epithelial Cells Few /hpf (<5) Urine Bacteria None seen /hpf (None Seen) Urine Glucose 3+ mg/dL (Normal) H Microbiology Microbiology Date/Time Source Procedure Growth Status 07/11/24 04:00 Voided Urine Urine Culture - Preliminary Resulted Labs and/or images reviewed: Labs reviewed by me, Image(s) reviewed by me Assessment/Plan Assessment/Plan Acute right flank pain Acute obstructive uropathy secondary to 9 mm right proximal ureteral stone: Consult for Urology Dr. [place], advised stat right nephrostomy tube placement by radiologist History of bladder cancer and left kidney cancer status post left nephrectomy Diabetes Hypothyroidism Sick sinus syndrome status post permanent pacemaker MYRNA secondary to obstructive uropathy: Consult by Dr. Zazueta appreciated, does not need emergency dialysis at the present time Time Spent 65 minutes Condition guarded Prognosis poor Patient is full code Advanced care planning time 20 minutes Patient's Zayra [phone] at bedside They are visiting here from [place] Plan discussed with: Patient Date of Service: Jul 12, 2024 Billing Provider: CORAZON FAJARDO MD Common Visit Codes: 02963-[id number] CARE 30-74 MIN CORAZON FAJARDO MD Jul 12, 2024 12:44
[2024-07-12] MEDS: LORazepam 2MG/ML-1ML VIAL IV ONE (13:15)
[2024-07-12 13:27] LABS: INR 1.03 (0.9-1.15); Prothrombin Time 10.9 sec (9.3-11.8)
[2024-07-12] MEDS: IOHEXOL 350 MG/ML 100ML IJ ONE (14:05)
[2024-07-12] MEDS: MORPHINE SULFATE INJ 2 MG/ml SYRG IV PRN (14:30)
[2024-07-12] MEDS: fentaNYL CITRATE 100 MCG/2 ML VL ONE (14:44)
[2024-07-12] MEDS: LIDOCAINE 2%HCL (LOCAL ANESTH.) INJ 20ML MDV ONE (14:44)
[2024-07-12] MEDS: MIDAZOLAM HCL 2MG/2ML 2ml VIAL (1mg/ml) ONE (14:44)
[2024-07-12] MEDS: cefTRIAXone 1GM/50ML D5W 50 ML IV ONE (14:49)
--- NOTE | 2024-07-12 15:43 | DVH ---
XY PERCUTANEOUS NEPHROSTOMY, HISTORY: NEPH TUBE PROCEDURE: Informed consent was obtained. The patient was placed on the fluoroscopic table in a prone position and IV sedation administered. 1 gram of Ceftriaxone was given. The right flank was prepped with chlorhexidine which was allowed to dry and draped in the usual sterile fashion. Time out was per formed. and the soft tissues infiltrated with 1% lidocaine local anesthetic. Utilizing ultrasound tereso dance, a 21 gauge Accu Stick needle was advanced from a posterolateral approach into an lower pole ca lyx, and a small amount of contrast was injected under fluoroscopy to confirm positioning. Over a man dril wire, exchange was made to a non-vascular access set, through which was advanced an 0.035 wire. Following serial dilation, an 8.5 Tajik multipurpose nephrostomy catheter was placed with tip pigtai led within the renal pelvis. Position was confirmed with antegrade nephrostogram. The catheter was se cured in place and connected to gravity drainage. A sterile dressing was applied. No immediate compli cation was identified. DAP FLUOROSCOPY TIME: minutes. CONTRAST USED: mL Isovue 300. SEDATION: Dr. Abigail Nassar was personally responsible for the administration of moderate sedation during the procedure performed, including the use of an independent trained observer who had no other duties during the procedure. The drugs utilized were IV fentanyl and versed (see nursing log for details). The total time of supervision by the attending physician was approximately minutes. FINDINGS: Moderately dilated right renal collecting system involving the calyces/renal pelvis/ureter to the level of the proximal ureter. New 8.5 Tajik nephrostomy tube via a posterior lower pole calyc eal access, with loop coiled within the renal pelvis. IMPRESSION: Right hydronephrosis due to obstructive proximal ureteral stone, status post placement of 8.5 Tajik right percutaneous nephrostomy catheter. PLAN: Routine catheter care.
--- NOTE | 2024-07-12 15:59 | DVH ---
XY PERCUTANEOUS NEPHROSTOMY, HISTORY: NEPH TUBE PROCEDURE: Informed consent was obtained. The patient was placed on the fluoroscopic table in a prone position and IV sedation administered. 1 gram of Ceftriaxone was given. The right flank was prepped with chlorhexidine which was allowed to dry and draped in the usual sterile fashion. Time out was pe rformed. and the soft tissues infiltrated with 1% lidocaine local anesthetic. Utilizing ultrasound gu idance, a 21 gauge Accu Stick needle was advanced from a posterolateral approach into an lower pole c jaylin, and a small amount of contrast was injected under fluoroscopy to confirm positioning. Over a ma ndril wire, exchange was made to a non-vascular access set, through which was advanced an 0.035 wire. Following serial dilation, an 8.5 Cambodian multipurpose nephrostomy catheter was placed with tip pigta iled within the renal pelvis. Position was confirmed with antegrade nephrostogram. The catheter was s ecured in place and connected to gravity drainage. A sterile dressing was applied. No immediate compl ication was identified. DAP FLUOROSCOPY TIME: 1.5 minutes. CONTRAST USED: 10 mL . SEDATION: Dr. Abigail Nassar was personally responsible for the administration of moderate sedation during the procedure performed, including the use of an independent trained observer who had no other duties during the procedure. The drugs utilized were IV fentanyl and versed (see nursing log for details). The total time of supervision by the attending physician was approximately 30 minutes. FINDINGS: Moderately dilated right renal collecting system involving the calyces/renal pelvis/ureter to the level of the proximal ureter. New 8.5 Cambodian nephrostomy tube via a posterior lower pole calyc eal access, with loop coiled within the renal pelvis. IMPRESSION: Right hydronephrosis due to obstructive proximal ureteral stone, status post placement of 8.5 Cambodian right percutaneous nephrostomy catheter. PLAN: Routine catheter care.
--- NOTE | 2024-07-12 16:42 | DVHPN2 ---
Progress Note Date Seen: Jul 12, 2024 Medical Necessity Reason Pt with a Central, PICC or Fol: No Subjective Patient reports: No new complaints Other Systems: Patient seen and examined by myself today in f/u Objective vital signs Vital Sign Date Time Temp Pulse Resp B/P (MAP) Pulse Ox O2 Delivery O2 Flow Rate FiO2 07/12/24 15:34 50 12 127/69 (88) 95 07/12/24 13:00 97.9 97.9 07/12/24 08:00 Room Air* 0 21 Total Intake and Output 07/11/24 07/11/24 07/12/24 15:00 23:00 07:00 Intake Total 1000 ml 150 ml Balance 1000 ml 150 ml medications Current Medications Medications Dose Ordered Sig/Alice Route Start Time Stop Time Status Last Admin Dose Admin Acetaminophen/ Hydrocodone Bitart 1 tab Q4HP PRN PO 07/11/24 11:15 Ondansetron HCl 4 mg Q4HP PRN IV 07/11/24 11:15 Acetaminophen 650 mg Q6HP PRN PO 07/11/24 11:15 Morphine Sulfate 2 mg Q4HPRN PRN IV 07/11/24 11:15 07/12/24 14:30 2 MG Sodium Chloride 1,000 ml @ 100 mls/hr Q10H IV 07/11/24 11:15 07/11/24 21:17 100 MLS/HR Diagnostic Test (Pha) 1 strip ACHS 07/11/24 11:30 07/12/24 11:30 1 STRIP Insulin Human Regular ACHS SC 07/11/24 11:30 Dextrose 50 ml UD PRN IV 07/11/24 11:15 Examination: LUNGS:Normal, CVS:Normal, MSK:Normal laboratory and microbiology Laboratory Tests 07/12/24 05:07 Test 07/12/24 05:07 Range/Units Serum Glucose 118 H 74-106 mg/dL Microbiology Date/Time Source Procedure Growth Status 07/11/24 04:00 Voided Urine Urine Culture - Preliminary Resulted Problem List/Assessment/Plan Problem List/Assessment/Plan 1) MYRNA insetting of obstructive uropathy of solitary kidney 2) obstructive kidney stone in orximal right ureter 3) CKD IIIb 4) DM II 5) h/o left nephrectomy REC: Scheduled for nephrostomy tube today Strict I&O's Renal diet Urology consult Will follow Plan discussed with: Patient My Orders My Orders Orders - TRINY MEDRANO MD Procedure Category Date Status Time Monitor Strict YFN 07/12/24 In Process Drainage Output 13:06 TRINY MEDRANO MD Jul 12, 2024 16:42
[2024-07-12] MEDS ORDERED: TAMSULOSIN HYDROCHLORIDE 0.4 MG CAP PO SCH (18:00)
[2024-07-12] MEDS: HYDROcodone-ACET 5/325MG TAB PO PRN (19:04)
[2024-07-13 05:08] VITALS: BP 120/66; PULSE 50; RESP 16; TEMP 97.6; O2SAT 96
[2024-07-13 07:04] LABS: Basophils # (auto) 0 10 ^3/uL (0-0.2); Basophils % (auto) 0.3 % (0.0-2.0); Eosinophils # (auto) 0.1 10 ^3/uL (0-0.8); Eosinophils % (auto) 2.4 % (0.0-7.0); Hematocrit 34.1 % (41.0-53.0); Hemoglobin 12.1 g/dL (13.5-17.5); Lymphocytes # (auto) 0.4 10 ^3/uL (0.4-5.4); Lymphocytes % (auto) 6.9 % (10.0-50.0); Mean Corpuscular Hemoglobin 29.6 pg (28.0-32.0); Mean Corpuscular Hgb Conc. 35.4 g/dL (32.0-36.0); Mean Corpuscular Volume 83.7 fL (80.0-100.0); Monocytes # (auto) 0.6 10 ^3/uL (0-1.3); Monocytes % (auto) 10.3 % (0.0-12.0); Neutrophils # (auto) 4.3 10 ^3/uL (1.6-8.6); Neutrophils % (auto) 80.1 % (37.0-80.0); Platelet Count (auto) 77 10^3/uL (140-450); Red Blood Cells 4.07 10^6/uL (4.5-5.90); Red Cell Distribution Width 14.1 % (11.8-14.3); White Blood Cell 5.4 10^3/uL (4.4-10.8)
[2024-07-13 07:14] LABS: Alanine Aminotransferase 11 U/L (7-40); Alkaline Phosphatase 59 U/L (46-116); Calcium 8.9 mg/dL (8.7-10.4)
[2024-07-13 07:15] LABS: Albumin 3.4 g/dL (3.2-4.8); Anion Gap 12 (5-15); BUN/Creatinine Ratio 12.2 (10.0-20.0); Bilirubin, Total 0.6 mg/dL (0.2-1.0); Sodium 138 mmol/L (136-145)
[2024-07-13 07:24] LABS: Aspartate Aminotransferase < 8 U/L (13-40); Blood Urea Nitrogen 76 mg/dL (9-23); Carbon Dioxide 17 mmol/L (20-31); Chloride 109 mmol/L (98-107); Glucose 90 mg/dL (74-106); Total Protein 5.4 g/dL (5.7-8.2)
[2024-07-13 08:00] VITALS: PULSE 50; PULSE 62; RESP 16
[2024-07-13 08:38] VITALS: BP 121/72; PULSE 52; RESP 18; TEMP 98; O2SAT 95
[2024-07-13 09:27] LABS: Urine Bacteria None Seen /hpf (None Seen)
[2024-07-13 09:51] LABS: Urine Blood 3+ /uL (Negative); Urine Clarity Turbid (Clear); Urine Mucus FEW (None Seen); Urine Protein, UAD 3+ (Negative); Urine Squamous Epithelial Cell FEW /hpf (<5); Urine Urobilinogen Normal (Negative); Urine WBC 24 /hpf (0 - 3); Urine pH 6.5 (5.0-9.0)
[2024-07-13 09:53] LABS: Urine Color STRAW (Yellow)
[2024-07-13 10:23] LABS: Creatinine, Urine 15.45 mg/dL (30.0-125.0)
[2024-07-13 10:26] LABS: Urine Protein/Creatinine Ratio 31.59
[2024-07-13 11:05] LABS: Protein, Urine 488.1 mg/dL (1-14)
--- NOTE | 2024-07-13 11:42 | DVHPN2 ---
Reviewed: Care Plan, H&P, Labs, Medications, Previous Orders, Radiology Changes from previous H/P or p: No Changes Eyes: No Pain, No Vision change, No Conjunctivae inflammation, No Eyelid inflammation, No Other, No Redness ENT: No Ear pain, No Ear discharge, No Nose pain, No Nose discharge, No Nose congestion, No Mouth pain, No Mouth swelling, No Throat pain, No Throat swelling, No Other Cardiovascular: No Chest Pain, No Palpitations, No Orthopnea, No Paroxysmal Noc. Dyspnea, No Edema, No Lt Headedness, No Other Respiratory: No Cough, No Dry, No Shortness of breath, No SOB with excertion, No Wheezing, No Hemoptysis, No Pleuritic Pain, No Sputum, No Other Gastrointestinal: Nausea; No Vomiting, No Abdominal Pain, No Diarrhea, No Constipation, No Melena, No Hematochezia, No Other Genitourinary: No Dysuria, No Frequency, No Incontinence; Hematuria; No Retention; Other (Right flank pain) Musculoskeletal: No other, No neck pain, No shoulder pain, No arm pain, No back pain, No hand pain, No leg pain, No foot pain Skin: No Rash, No Lesions, No Jaundice, No Bruising, No Other Objective Vitals Vital Signs Date Time Temp Pulse Resp B/P (MAP) Pulse Ox O2 Delivery O2 Flow Rate FiO2 07/13/24 08:38 98.0 52 18 121/72 (88) 95 98.0 07/13/24 08:00 Room Air* 0 21 Intake/Output Intake and Output 07/13/24 07:00 Intake Total 3310 ml Output Total 1470 ml Balance 1840 ml Intake Oral 1760 ml IV Total 1550 ml Output Urine Total 50 ml Drainage Total 350 ml Other 1070 ml Medications Current Medications Medications Dose Ordered Sig/Alice Route Start Time Stop Time Status Last Admin Dose Admin Acetaminophen/ Hydrocodone Bitart 1 tab Q4HP PRN PO 07/11/24 11:15 07/13/24 02:50 1 TAB Ondansetron HCl 4 mg Q4HP PRN IV 07/11/24 11:15 Acetaminophen 650 mg Q6HP PRN PO 07/11/24 11:15 Morphine Sulfate 2 mg Q4HPRN PRN IV 07/11/24 11:15 07/12/24 14:30 2 MG Sodium Chloride 1,000 ml @ 100 mls/hr Q10H IV 07/11/24 11:15 07/13/24 02:52 100 MLS/HR Diagnostic Test (Pha) 1 strip ACHS 07/11/24 11:30 07/13/24 06:02 1 STRIP Insulin Human Regular ACHS SC 07/11/24 11:30 Dextrose 50 ml UD PRN IV 07/11/24 11:15 Laboratory Results Laboratory Tests 07/13/24 05:27 Chemistry Test 07/12/24 21:26 07/13/24 05:27 Phosphorus Level 6.4 mg/dL (2.4-5.1) H Albumin 3.4 g/dL (3.2-4.8) Calcium Level 8.9 mg/dL (8.7-10.4) Total Protein 5.4 g/dL (5.7-8.2) L LFT Test 07/13/24 05:27 Alanine Aminotransferase (ALT) 11 U/L (7-40) Alkaline Phosphatase 59 U/L (46-116) Aspartate Amino Transferase (AST) < 8 U/L (13-40) L Total Bilirubin 0.6 mg/dL (0.2-1.0) Urinalysis Test 07/13/24 09:26 Urine Color Straw (Yellow) Urine Clarity Turbid (Clear) H Urine pH 6.5 (5.0-9.0) Urine Specific [place] 1.010 (1.001-1.035) Urine Protein 3+ (Negative) H Urine Ketones Negative (Negative) Urine Blood 3+ /uL (Negative) H Urine Nitrite Negative (Negative) Urine Bilirubin Negative (Negative) Urine Urobilinogen Normal mg/dL (Negative) Urine Leukocyte Esterase 1+ /uL (Negative) Urine RBC 3596 /hpf (0 - 3) Urine WBC 24 /hpf (0 - 3) Urine Squamous Epithelial Cells Few /hpf (<5) Urine Bacteria None seen /hpf (None Seen) Urine Mucus Few (None Seen) Urine Creatinine 15.45 mg/dL (30.0-125.0) L Urine Protein/Creatinine Ratio 31.59 Urine Sodium Pending Urine Glucose Trace mg/dL (Normal) Urine Total Protein 488.1 mg/dL (1-14) H Microbiology Microbiology Date/Time Source Procedure Growth Status 07/11/24 04:00 Voided Urine Urine Culture - Preliminary Resulted Labs and/or images reviewed: Labs reviewed by me, Image(s) reviewed by me Assessment/Plan Assessment/Plan Acute right flank pain Acute obstructive uropathy secondary to 9 mm right proximal ureteral stone: Consult for Urology Dr. Boston, status post right nephrostomy tube placement by the radiologist on 07/12/2024, urology planning for lithotripsy once creatinine improves History of bladder cancer and left kidney cancer status post left nephrectomy Diabetes Hypothyroidism Sick sinus syndrome status post permanent pacemaker MYRNA secondary to obstructive uropathy: Consult by Dr. Zazueta appreciated, does not need emergency dialysis at the present time Time Spent 55 minutes Condition guarded Prognosis poor Patient is full code Advanced care planning time 20 minutes Patient's Zayra [phone] at bedside They are visiting here from [place] Plan discussed with: Patient My Orders Orders - CORAZON FAJARDO MD Procedure Category Date Status Time Complete Blood Count LAB 07/14/24 Verified 05:00 Complete Blood Count LAB 07/15/24 Verified 05:00 Complete Blood Count LAB 07/16/24 Verified 05:00 Complete Blood Count LAB 07/17/24 Verified 05:00 Comprehensive LAB 07/14/24 Verified Metabolic Panel 05:00 Comprehensive LAB 07/15/24 Verified Metabolic Panel 05:00 Comprehensive LAB 07/16/24 Verified Metabolic Panel 05:00 Comprehensive LAB 07/17/24 Verified Metabolic Panel 05:00 Communication Order ORDERS 07/12/24 Transmitted 15:42 Date of Service: Jul 13, 2024 Billing Provider: CORAZON FAJARDO MD Common Visit Codes: [id number] INP/OBS CARE(HIGH) CORAZON FAJARDO MD Jul 13, 2024 11:42
--- NOTE | 2024-07-13 12:00 | DVHPN2 ---
Progress Note - Dictate Date Seen: Jul 13, 2024 Medical Necessity Reason Pt with a Central, PICC or Fol: Yes The following are medically ne: Head Catheter Reason for head catheter: Strict I&O Subjective no complaint vital signs Vital Sign Date Time Temp Pulse Resp B/P (MAP) Pulse Ox O2 Delivery O2 Flow Rate FiO2 07/13/24 08:38 98.0 52 18 121/72 (88) 95 98.0 07/13/24 08:00 Room Air* 0 21 Total Intake and Output 07/12/24 07/12/24 07/13/24 15:00 23:00 07:00 Intake Total 600 ml 360 ml 2350 ml Output Total 1470 ml Balance 600 ml -1110 ml 2350 ml medications Current Medications Medications Dose Ordered Sig/Alice Route Start Time Stop Time Status Last Admin Dose Admin Acetaminophen/ Hydrocodone Bitart 1 tab Q4HP PRN PO 07/11/24 11:15 07/13/24 02:50 1 TAB Ondansetron HCl 4 mg Q4HP PRN IV 07/11/24 11:15 Acetaminophen 650 mg Q6HP PRN PO 07/11/24 11:15 Morphine Sulfate 2 mg Q4HPRN PRN IV 07/11/24 11:15 07/12/24 14:30 2 MG Sodium Chloride 1,000 ml @ 100 mls/hr Q10H IV 07/11/24 11:15 07/13/24 02:52 100 MLS/HR Diagnostic Test (Pha) 1 strip ACHS 07/11/24 11:30 07/13/24 11:54 1 STRIP Insulin Human Regular ACHS SC 07/11/24 11:30 Dextrose 50 ml UD PRN IV 07/11/24 11:15 Docusate Sodium 100 mg BIDPRN PRN PO 07/13/24 11:45 UNV objective comfortable. scant output to head good output to right PCN. creatinine improving laboratory and microbiology Laboratory Tests 07/13/24 05:27 Test 07/13/24 05:27 Range/Units Serum Glucose 90 74-106 mg/dL Assessment/Plan recommend D/C head keep PCN if creatinine normalizes consider ESWL vs URSLL inpt or friday otherwise d/c home with PCN and pt will have definitive treatment with home urologist Problems(with codes): (1) Acute abdominal pain (2) Hydronephrosis with renal and ureteral calculous obstruction (3) Renal colic on right side (4) MYRNA (acute kidney injury) (5) Solitary right kidney Prognosis fair Plan discussed with: Patient, Spouse, Other NICOLETTE KENNY NP Jul 13, 2024 12:00
[2024-07-13 12:06] LABS: PSA Free 1.04 ng/mL
--- NOTE | 2024-07-13 12:52 | DVHPN2 ---
Progress Note Date Seen: Jul 13, 2024 Medical Necessity Reason Pt with a Central, PICC or Fol: Yes The following are medically ne: Head Catheter Reason for head catheter: Strict I&O Subjective Patient reports: No new complaints Other Systems: Patient seen and examined by myself today in follow-up Objective vital signs Vital Sign Date Time Temp Pulse Resp B/P (MAP) Pulse Ox O2 Delivery O2 Flow Rate FiO2 07/13/24 08:38 98.0 52 18 121/72 (88) 95 98.0 07/13/24 08:00 Room Air* 0 21 Total Intake and Output 07/12/24 07/12/24 07/13/24 15:00 23:00 07:00 Intake Total 600 ml 360 ml 2350 ml Output Total 1470 ml Balance 600 ml -1110 ml 2350 ml medications Current Medications Medications Dose Ordered Sig/Alice Route Start Time Stop Time Status Last Admin Dose Admin Acetaminophen/ Hydrocodone Bitart 1 tab Q4HP PRN PO 07/11/24 11:15 07/13/24 02:50 1 TAB Ondansetron HCl 4 mg Q4HP PRN IV 07/11/24 11:15 Acetaminophen 650 mg Q6HP PRN PO 07/11/24 11:15 Morphine Sulfate 2 mg Q4HPRN PRN IV 07/11/24 11:15 07/12/24 14:30 2 MG Sodium Chloride 1,000 ml @ 100 mls/hr Q10H IV 07/11/24 11:15 07/13/24 12:11 100 MLS/HR Diagnostic Test (Pha) 1 strip ACHS 07/11/24 11:30 07/13/24 11:54 1 STRIP Insulin Human Regular ACHS SC 07/11/24 11:30 Dextrose 50 ml UD PRN IV 07/11/24 11:15 Docusate Sodium 100 mg BIDPRN PRN PO 07/13/24 11:45 UNV Examination: LUNGS:Normal, CVS:Normal, MSK:Normal laboratory and microbiology Laboratory Tests 07/13/24 05:27 Test 07/13/24 05:27 Range/Units Serum Glucose 90 74-106 mg/dL Microbiology Date/Time Source Procedure Growth Status 07/11/24 04:00 Voided Urine Urine Culture - Final Complete Problem List/Assessment/Plan Problem List/Assessment/Plan 1) MYRNA insetting of obstructive uropathy of solitary kidney 2) obstructive kidney stone in proximal right ureter 3) CKD IIIb 4) DM II 5) h/o left nephrectomy 6) metabolic acidosis REC: Kidney function is improving status post nephrostomy tube Increased urine output IVF half NS with 50 mEq sodium bicarb at 100 cc/hour Strict I&O's Renal diet Urology consult Will follow Plan discussed with: Patient My Orders My Orders Orders - TRINY MEDRANO MD Procedure Category Date Status Time Monitor Strict YFN 07/12/24 In Process Drainage Output 13:06 1/2nsw Sodium PHA 07/13/24 Verified Bicarbonate Drip 13:00 TRINY MEDRANO MD Jul 13, 2024 12:52
[2024-07-13] MEDS: DOCUSATE SOD 100 MG CAP PO PRN (15:44)
[2024-07-13] MEDS: SODIUM BICARB 50mEq/50ml Vial 50 ML in SOD CHL 0.45% 1,000 ML IV SCH (15:44)
[2024-07-13 17:00] VITALS: BP 127/82; PULSE 50; RESP 18; TEMP 97.9; O2SAT 97
[2024-07-13 20:00] VITALS: PULSE 56
[2024-07-13 21:00] VITALS: BP 124/81; PULSE 57; RESP 17; TEMP 97.6; O2SAT 96
[2024-07-14] VITALS (7 sets, daily range): BP systolic 121–143; BP diastolic 65–85; PULSE 50–52; RESP 16–20; TEMP 97.6–98.5; O2SAT 94–98
[2024-07-14 07:25] LABS: Basophils # (auto) 0 10 ^3/uL (0-0.2); Basophils % (auto) 0.5 % (0.0-2.0); Eosinophils # (auto) 0.2 10 ^3/uL (0-0.8); Eosinophils % (auto) 4.2 % (0.0-7.0); Hematocrit 37.8 % (41.0-53.0); Hemoglobin 13.3 g/dL (13.5-17.5); Lymphocytes # (auto) 0.4 10 ^3/uL (0.4-5.4); Lymphocytes % (auto) 8.9 % (10.0-50.0); Mean Corpuscular Hemoglobin 29.3 pg (28.0-32.0); Mean Corpuscular Hgb Conc. 35.3 g/dL (32.0-36.0); Mean Corpuscular Volume 83.2 fL (80.0-100.0); Monocytes # (auto) 0.5 10 ^3/uL (0-1.3); Monocytes % (auto) 10.8 % (0.0-12.0); Neutrophils # (auto) 3.5 10 ^3/uL (1.6-8.6); Neutrophils % (auto) 75.6 % (37.0-80.0); Nucleated Red Blood Cells % 0.1 %; Platelet Count (auto) 90 10^3/uL (140-450); Red Blood Cells 4.55 10^6/uL (4.5-5.90); White Blood Cell 4.6 10^3/uL (4.4-10.8)
[2024-07-14 07:51] LABS: Albumin 3.6 g/dL (3.2-4.8); Alkaline Phosphatase 59 U/L (46-116); Anion Gap 9 (5-15); BUN/Creatinine Ratio 16.1 (10.0-20.0); Bilirubin, Total 0.5 mg/dL (0.2-1.0); Carbon Dioxide 21 mmol/L (20-31); Glucose 106 mg/dL (74-106); Potassium 4.3 mmol/L (3.5-5.1); Sodium 140 mmol/L (136-145)
[2024-07-14 07:59] LABS: Alanine Aminotransferase 9 U/L (7-40); Aspartate Aminotransferase 9 U/L (13-40); Blood Urea Nitrogen 57 mg/dL (9-23); Chloride 110 mmol/L (98-107); Total Protein 5.5 g/dL (5.7-8.2)
--- NOTE | 2024-07-14 08:46 | DVHPN2 ---
Progress Note - Dictate Date Seen: Jul 14, 2024 Medical Necessity Reason Pt with a Central, PICC or Fol: Yes The following are medically ne: Head Catheter Reason for head catheter: Strict I&O Subjective no complaint vital signs Vital Sign Date Time Temp Pulse Resp B/P (MAP) Pulse Ox O2 Delivery O2 Flow Rate FiO2 07/14/24 05:00 97.9 50 18 121/71 (88) 94 97.9 07/13/24 20:00 Room Air* 0 21 Total Intake and Output 07/13/24 07/13/24 07/14/24 15:00 23:00 07:00 Intake Total 250 ml 1100 ml Output Total 1010 ml 800 ml 2400 ml Balance -1010 ml -550 ml -1300 ml medications Current Medications Medications Dose Ordered Sig/Alice Route Start Time Stop Time Status Last Admin Dose Admin Acetaminophen/ Hydrocodone Bitart 1 tab Q4HP PRN PO 07/11/24 11:15 07/14/24 04:19 1 TAB Ondansetron HCl 4 mg Q4HP PRN IV 07/11/24 11:15 Acetaminophen 650 mg Q6HP PRN PO 07/11/24 11:15 Morphine Sulfate 2 mg Q4HPRN PRN IV 07/11/24 11:15 07/12/24 14:30 2 MG Diagnostic Test (Pha) 1 strip ACHS 07/11/24 11:30 07/14/24 06:27 1 STRIP Insulin Human Regular ACHS SC 07/11/24 11:30 Dextrose 50 ml UD PRN IV 07/11/24 11:15 Docusate Sodium 100 mg BIDPRN PRN PO 07/13/24 11:45 07/13/24 15:44 100 MG Sodium Bicarbonate 50 ml/ Sodium Chloride 1,050 ml @ 100 mls/hr [id number] IV 07/13/24 13:00 07/14/24 01:21 100 MLS/HR objective comfortable. scant output to head good output to right PCN. creatinine improving laboratory and microbiology Laboratory Tests 07/14/24 06:20 Test 07/14/24 06:20 Range/Units Serum Glucose 106 74-106 mg/dL Assessment/Plan recommend D/C head keep PCN if creatinine normalizes consider ESWL vs URSLL inpt or friday otherwise d/c home with PCN and pt will have definitive treatment with home urologist Plan discussed with: Patient, Spouse, Other NICOLETTE KENNY NP Jul 14, 2024 08:46
--- NOTE | 2024-07-14 10:45 | DVHPN2 ---
Subjective Seen and examined at bedside, is bedside also. Renal function is trending down. If Cr around 1.5 will be taken to the OR by Dr. Boston tomorrow or Friday. Reviewed: Care Plan, H&P, Labs, Medications, Previous Orders, Radiology Changes from previous H/P or p: No Changes Eyes: No Pain, No Vision change, No Conjunctivae inflammation, No Eyelid inflammation, No Other, No Redness ENT: No Ear pain, No Ear discharge, No Nose pain, No Nose discharge, No Nose congestion, No Mouth pain, No Mouth swelling, No Throat pain, No Throat swelling, No Other Cardiovascular: No Chest Pain, No Palpitations, No Orthopnea, No Paroxysmal Noc. Dyspnea, No Edema, No Lt Headedness, No Other Respiratory: No Cough, No Dry, No Shortness of breath, No SOB with excertion, No Wheezing, No Hemoptysis, No Pleuritic Pain, No Sputum, No Other Gastrointestinal: No Nausea, No Vomiting, No Abdominal Pain, No Diarrhea, No Constipation, No Melena, No Hematochezia, No Other Genitourinary: No Dysuria, No Frequency, No Incontinence, No Hematuria, No Retention, No Other Musculoskeletal: No other, No neck pain, No shoulder pain, No arm pain, No back pain, No hand pain, No leg pain, No foot pain Skin: No Rash, No Lesions, No Jaundice, No Bruising, No Other Objective Vitals Vital Signs Date Time Temp Pulse Resp B/P (MAP) Pulse Ox O2 Delivery O2 Flow Rate FiO2 07/14/24 08:53 97.8 50 18 133/85 (101) 96 97.8 07/13/24 20:00 Room Air* 0 21 Intake/Output Intake and Output 07/14/24 07:00 Intake Total 1350 ml Output Total 4210 ml Balance -2860 ml Intake Oral 400 ml IV Total 950 ml Output Urine Total 2400 ml Other 1810 ml Exam Gen: in bed NAD Cvs: N S1/S2, RRR Resp: BLAE Abd: Nephrostomy tube+, soft, NT Taxicab Coordinator: AAO x 4 Medications Current Medications Medications Dose Ordered Sig/Alice Route Start Time Stop Time Status Last Admin Dose Admin Acetaminophen/ Hydrocodone Bitart 1 tab Q4HP PRN PO 07/11/24 11:15 07/14/24 04:19 1 TAB Ondansetron HCl 4 mg Q4HP PRN IV 07/11/24 11:15 Acetaminophen 650 mg Q6HP PRN PO 07/11/24 11:15 Morphine Sulfate 2 mg Q4HPRN PRN IV 07/11/24 11:15 07/12/24 14:30 2 MG Diagnostic Test (Pha) 1 strip ACHS 07/11/24 11:30 07/14/24 06:27 1 STRIP Insulin Human Regular ACHS SC 07/11/24 11:30 Dextrose 50 ml UD PRN IV 07/11/24 11:15 Docusate Sodium 100 mg BIDPRN PRN PO 07/13/24 11:45 07/14/24 09:44 100 MG Sodium Chloride 1,000 ml @ 75 mls/hr [id number] IV 07/14/24 10:45 07/15/24 13:24 UNV Laboratory Results Laboratory Tests 07/14/24 06:20 Chemistry Test 07/14/24 06:20 Albumin 3.6 g/dL (3.2-4.8) Calcium Level 9.0 mg/dL (8.7-10.4) Total Protein 5.5 g/dL (5.7-8.2) L LFT Test 07/14/24 06:20 Alanine Aminotransferase (ALT) 9 U/L (7-40) Alkaline Phosphatase 59 U/L (46-116) Aspartate Amino Transferase (AST) 9 U/L (13-40) L Total Bilirubin 0.5 mg/dL (0.2-1.0) Urinalysis Test 07/13/24 09:26 Urine Color Straw (Yellow) Urine Clarity Turbid (Clear) H Urine pH 6.5 (5.0-9.0) Urine Specific [place] 1.010 (1.001-1.035) Urine Protein 3+ (Negative) H Urine Ketones Negative (Negative) Urine Blood 3+ /uL (Negative) H Urine Nitrite Negative (Negative) Urine Bilirubin Negative (Negative) Urine Urobilinogen Normal mg/dL (Negative) Urine Leukocyte Esterase 1+ /uL (Negative) Urine RBC 3596 /hpf (0 - 3) Urine WBC 24 /hpf (0 - 3) Urine Squamous Epithelial Cells Few /hpf (<5) Urine Bacteria None seen /hpf (None Seen) Urine Mucus Few (None Seen) Urine Creatinine 15.45 mg/dL (30.0-125.0) L Urine Protein/Creatinine Ratio 31.59 Urine Sodium 141 mmol/L (40-220) Urine Glucose Trace mg/dL (Normal) Urine Total Protein 488.1 mg/dL (1-14) H Microbiology Microbiology Date/Time Source Procedure Growth Status 07/11/24 04:00 Voided Urine Urine Culture - Final Complete Assessment/Plan Assessment/Plan Acute obstructive uropathy secondary to 9 mm right proximal ureteral stone: Consult for Urology Dr. Boston, s/p right nephrostomy tube placement by the radiologist on 07/12/2024, urology planning for lithotripsy once creatinine improves MYRNA secondary to obstructive uropathy Acute Cystitis- Abx History of bladder cancer and left kidney cancer status post left nephrectomy Diabetes Hypothyroidism Sick sinus syndrome status post permanent pacemaker Goals of care discussion >18 mins FULL CODE Plan discussed with: Patient My Orders Orders - CHRISTOPH GALINDO MD Procedure Category Date Status Time Basic Metabolic Panel LAB 07/15/24 Verified 04:00 Npo After Midnight DIET 07/14/24 Transmitted Lunch Sodium Chloride 0.9% PHA 07/14/24 Logged 10:45 Ceftriaxone 1gm/50ml PHA 07/14/24 Logged D5w (Rocephin) 10:45 Ceftriaxone 1gm/50ml PHA 07/15/24 Logged D5w (Rocephin) 09:00 Transfer Orders XFER 07/14/24 Transmitted 10:36 Discontinue Tele YFN 07/14/24 In Process 10:36 Tamsulosin PHA 07/14/24 Logged Hydrochloride (Flomax) 10:45 Tamsulosin PHA 07/14/24 Logged Hydrochloride (Flomax) 18:00 Date of Service: Jul 14, 2024 Billing Provider: CHRISTOPH GALINDO MD Common Visit Codes: [id number] INP/OBS CARE(HIGH) Secondary Visit Codes: [id number] CARE PLAN 30 MINUTES CHRISTOPH GALINDO MD Jul 14, 2024 10:45
[2024-07-14] MEDS: cefTRIAXone 1GM/50ML D5W 50 ML IV ONE (10:54)
--- NOTE | 2024-07-14 11:32 | DVHPN2 ---
Progress Note Date Seen: Jul 14, 2024 Medical Necessity Reason Pt with a Central, PICC or Fol: Yes The following are medically ne: Head Catheter Reason for head catheter: Strict I&O Subjective Patient reports: Feels better Objective vital signs Vital Sign Date Time Temp Pulse Resp B/P (MAP) Pulse Ox O2 Delivery O2 Flow Rate FiO2 07/14/24 08:53 97.8 50 18 133/85 (101) 96 97.8 07/13/24 20:00 Room Air* 0 21 Total Intake and Output 07/13/24 07/13/24 07/14/24 15:00 23:00 07:00 Intake Total 250 ml 1100 ml Output Total 1010 ml 800 ml 2400 ml Balance -1010 ml -550 ml -1300 ml medications Current Medications Medications Dose Ordered Sig/Alice Route Start Time Stop Time Status Last Admin Dose Admin Acetaminophen/ Hydrocodone Bitart 1 tab Q4HP PRN PO 07/11/24 11:15 07/14/24 04:19 1 TAB Ondansetron HCl 4 mg Q4HP PRN IV 07/11/24 11:15 Acetaminophen 650 mg Q6HP PRN PO 07/11/24 11:15 Morphine Sulfate 2 mg Q4HPRN PRN IV 07/11/24 11:15 07/12/24 14:30 2 MG Diagnostic Test (Pha) 1 strip ACHS 07/11/24 11:30 07/14/24 06:27 1 STRIP Insulin Human Regular ACHS SC 07/11/24 11:30 Dextrose 50 ml UD PRN IV 07/11/24 11:15 Docusate Sodium 100 mg BIDPRN PRN PO 07/13/24 11:45 07/14/24 09:44 100 MG Sodium Chloride 1,000 ml @ 75 mls/hr [id number] IV 07/14/24 10:45 07/15/24 13:24 Ceftriaxone Sodium 50 ml @ 100 mls/hr DAILY@09 IV 07/15/24 09:00 Tamsulosin HCl 0.4 mg QPM PO 07/14/24 18:00 UNV Examination: GENERAL:Normal, ABDOMEN:Abnormal, :Abnormal laboratory and microbiology Laboratory Tests 07/14/24 06:20 Test 07/14/24 06:20 Range/Units Serum Glucose 106 74-106 mg/dL Microbiology Date/Time Source Procedure Growth Status 07/11/24 04:00 Voided Urine Urine Culture - Final Complete Problem List/Assessment/Plan Problem List/Assessment/Plan 1) MYRNA in setting of obstructive uropathy of solitary kidney 2) obstructive kidney stone in proximal right ureter 3) CKD IIIb 4) DM II 5) h/o left nephrectomy 6) metabolic acidosis Kidney function is improving status post nephrostomy tube Increased urine output IVF on NS, consider change to LR for more balanced solution Strict I&O's Renal diet Urology consult for lithotripsy Plan discussed with: Patient FREDIS WANG MD Jul 14, 2024 11:32
[2024-07-14] MEDS: SODIUM CHLORIDE 0.9% 1,000 ML IV SCH (12:05)
[2024-07-14] MEDS: TAMSULOSIN HYDROCHLORIDE 0.4 MG CAP PO ONE (12:15)
[2024-07-14] MEDS: TAMSULOSIN HYDROCHLORIDE 0.4 MG CAP PO SCH (17:36)
[2024-07-15] VITALS (9 sets, daily range): BP systolic 121–142; BP diastolic 60–78; PULSE 50–67; RESP 16–20; TEMP 97.4–98.4; O2SAT 94–100
[2024-07-15 07:29] LABS: Anion Gap 7 (5-15); Carbon Dioxide 25 mmol/L (20-31); Potassium 4.7 mmol/L (3.5-5.1); Sodium 143 mmol/L (136-145)
[2024-07-15 07:30] LABS: Calcium 9.4 mg/dL (8.7-10.4)
[2024-07-15 07:35] LABS: Glucose 98 mg/dL (74-106)
[2024-07-15 07:40] LABS: Blood Urea Nitrogen 46 mg/dL (9-23); Chloride 111 mmol/L (98-107)
[2024-07-15] MEDS: cefTRIAXone 1GM/50ML D5W 50 ML IV SCH (08:36)
--- NOTE | 2024-07-15 09:23 | DVHPN2 ---
Progress Note Date Seen: Jul 15, 2024 Medical Necessity Reason Pt with a Central, PICC or Fol: Yes The following are medically ne: Head Catheter Reason for head catheter: Strict I&O Subjective Patient reports: No new complaints Review of Systems: :Abnormal Objective vital signs Vital Sign Date Time Temp Pulse Resp B/P (MAP) Pulse Ox O2 Delivery O2 Flow Rate FiO2 07/15/24 09:00 97.6 50 17 142/74 (96) 97 97.6 07/14/24 20:00 Room Air* 0 21 Total Intake and Output 07/14/24 07/14/24 07/15/24 15:00 23:00 07:00 Intake Total 300 ml 1450 ml 800 ml Output Total 2200 ml 2475 ml Balance 300 ml -750 ml -1675 ml medications Current Medications Medications Dose Ordered Sig/Alice Route Start Time Stop Time Status Last Admin Dose Admin Acetaminophen/ Hydrocodone Bitart 1 tab Q4HP PRN PO 07/11/24 11:15 07/14/24 04:19 1 TAB Ondansetron HCl 4 mg Q4HP PRN IV 07/11/24 11:15 Acetaminophen 650 mg Q6HP PRN PO 07/11/24 11:15 Morphine Sulfate 2 mg Q4HPRN PRN IV 07/11/24 11:15 07/12/24 14:30 2 MG Diagnostic Test (Pha) 1 strip ACHS 07/11/24 11:30 07/15/24 06:18 1 STRIP Insulin Human Regular ACHS SC 07/11/24 11:30 Dextrose 50 ml UD PRN IV 07/11/24 11:15 Docusate Sodium 100 mg BIDPRN PRN PO 07/13/24 11:45 07/14/24 09:44 100 MG Sodium Chloride 1,000 ml @ 75 mls/hr [id number] IV 07/14/24 10:45 07/15/24 13:24 07/15/24 00:23 75 MLS/HR Ceftriaxone Sodium 50 ml @ 100 mls/hr DAILY@09 IV 07/15/24 09:00 07/15/24 08:36 100 MLS/HR Tamsulosin HCl 0.4 mg QPM PO 07/14/24 18:00 07/14/24 17:36 0.4 MG Examination: GENERAL:Normal, CVS:Normal, :Abnormal laboratory and microbiology Laboratory Tests 07/15/24 06:22 07/14/24 06:20 Test 07/15/24 06:22 Range/Units Serum Glucose 98 74-106 mg/dL Microbiology Date/Time Source Procedure Growth Status 07/11/24 04:00 Voided Urine Urine Culture - Final Complete Problem List/Assessment/Plan Problem List/Assessment/Plan 1) MYRNA in setting of obstructive uropathy of solitary kidney 2) obstructive kidney stone in proximal right ureter 3) CKD IIIb 4) DM II 5) h/o left nephrectomy 6) metabolic acidosis Kidney function is improving status post nephrostomy tube Increased urine output IVF on NS, consider change to LR for more balanced solution Strict I&O's Renal diet Urology consult for lithotripsy tentative today Plan discussed with: Patient FREDIS WANG MD Jul 15, 2024 09:23
[2024-07-15] MEDS ORDERED: fentaNYL CITRATE 100 MCG/2 ML VL ONE (13:03)
[2024-07-15] MEDS ORDERED: ePHEDrine SULFATE 50 MG/ML AMP ONE (13:18)
[2024-07-15] MEDS ORDERED: ONDANSETRON HCL 4 MG/2 ML VIAL ONE (13:18)
[2024-07-15] MEDS: IOHEXOL 180 MG/ML 20ML VIAL IJ ONE (13:20)
--- NOTE | 2024-07-15 14:00 | DVHOP2 ---
Operative Report - 2 Report Details Date: 07/15/24 Preop Diagnosis: Solitary right kidney with hydronephrosis secondary to an obstructing 9 mm proximal ureteral calculus Stone appears to be radiolucent Postop Diagnosis: Same Surgeon: Riley Holliday Anesthesiologist: Dr. Paz Anesthesia: General Consent: The patient was informed of the risks and benefits of the procedure. These include but are not limited to complications of anesthesia, postoperative infection, incomplete relief of symptoms, recurrence of symptoms, damage to blood vessels, nerves and tendons, deep venous thrombosis, pulmonary embolism and possible need for repeat surgery in the future. Indications for Surgery: Patient required a right percutaneous nephrostomy tube placement secondary to an obstructing 9 mm proximal ureteral stone. Name of Procedure Performed Extracorporeal shockwave lithotripsy of right proximal ureteral calculus Right nephrostogram, antegrade Procedure Details Procedure Details: Patient was taken to the operating room and underwent general anesthesia. He was placed on the lithotripsy table. The fluoroscopy could not identify the radio opaque stone and the contrast was injected into the nephrostomy tube to identify the filling defect located in the proximal ureter. The stone was then localized onto the F2 focus and 2400 shock waves were delivered. Subsequent contrast study shows resolution of the filling defect. The nephrostomy tube was maintained to gravity drainage since patient has solitary right kidney (status post prior left nephrectomy for malignancy). Procedure was completed and he was awakened. Patient was taken to the recovery room in stable condition. Disposition: Patient wishes to follow up with urologist in his hometown in [place] for further management of his ureteral calculus and nephrostomy tube Specimen: None Condition Fair Disposition RILEY HOLLIDAY MD Jul 15, 2024 14:00
--- NOTE | 2024-07-15 16:42 | DVHPN2 ---
Subjective Renal function improving, for shockwave Reviewed: Care Plan, H&P, Labs, Medications, Previous Orders, Radiology Changes from previous H/P or p: No Changes Eyes: No Pain, No Vision change, No Conjunctivae inflammation, No Eyelid inflammation, No Other, No Redness ENT: No Ear pain, No Ear discharge, No Nose pain, No Nose discharge, No Nose congestion, No Mouth pain, No Mouth swelling, No Throat pain, No Throat swelling, No Other Cardiovascular: No Chest Pain, No Palpitations, No Orthopnea, No Paroxysmal Noc. Dyspnea, No Edema, No Lt Headedness, No Other Respiratory: No Cough, No Dry, No Shortness of breath, No SOB with excertion, No Wheezing, No Hemoptysis, No Pleuritic Pain, No Sputum, No Other Gastrointestinal: No Nausea, No Vomiting, No Abdominal Pain, No Diarrhea, No Constipation, No Melena, No Hematochezia, No Other Genitourinary: No Dysuria, No Frequency, No Incontinence, No Hematuria, No Retention, No Other Musculoskeletal: No other, No neck pain, No shoulder pain, No arm pain, No back pain, No hand pain, No leg pain, No foot pain Skin: No Rash, No Lesions, No Jaundice, No Bruising, No Other Objective Vitals Vital Signs Date Time Temp Pulse Resp B/P (MAP) Pulse Ox O2 Delivery O2 Flow Rate FiO2 07/15/24 15:10 50 16 121/70 (87) 98 07/15/24 14:05 97.8 97.8 07/15/24 14:05 Room Air 07/15/24 08:18 0 21 Intake/Output Intake and Output 07/15/24 07:00 Intake Total 2550 ml Output Total 4675 ml Balance -2125 ml Intake Oral 1800 ml IV Total 750 ml Output Urine Total 4675 ml Exam Gen: in bed NAD Cvs: N S1/S2, RRR Resp: BLAE Abd: Nephrostomy tube+, soft, NT [employer]: AAO x 4 Medications Current Medications Medications Dose Ordered Sig/Alice Route Start Time Stop Time Status Last Admin Dose Admin Acetaminophen/ Hydrocodone Bitart 1 tab Q4HP PRN PO 07/11/24 11:15 07/14/24 04:19 1 TAB Ondansetron HCl 4 mg Q4HP PRN IV 07/11/24 11:15 Acetaminophen 650 mg Q6HP PRN PO 07/11/24 11:15 Morphine Sulfate 2 mg Q4HPRN PRN IV 07/11/24 11:15 07/12/24 14:30 2 MG Diagnostic Test (Pha) 1 strip ACHS 07/11/24 11:30 07/15/24 11:34 1 STRIP Insulin Human Regular ACHS SC 07/11/24 11:30 Dextrose 50 ml UD PRN IV 07/11/24 11:15 Docusate Sodium 100 mg BIDPRN PRN PO 07/13/24 11:45 07/14/24 09:44 100 MG Ceftriaxone Sodium 50 ml @ 100 mls/hr DAILY@09 IV 07/15/24 09:00 07/15/24 08:36 100 MLS/HR Tamsulosin HCl 0.4 mg QPM PO 07/14/24 18:00 07/14/24 17:36 0.4 MG Laboratory Results Laboratory Tests 07/14/24 06:20 07/15/24 06:22 Chemistry Test 07/15/24 06:22 Calcium Level 9.4 mg/dL (8.7-10.4) Urinalysis Test 07/13/24 09:26 Urine Color Straw (Yellow) Urine Clarity Turbid (Clear) H Urine pH 6.5 (5.0-9.0) Urine Specific [place] 1.010 (1.001-1.035) Urine Protein 3+ (Negative) H Urine Ketones Negative (Negative) Urine Blood 3+ /uL (Negative) H Urine Nitrite Negative (Negative) Urine Bilirubin Negative (Negative) Urine Urobilinogen Normal mg/dL (Negative) Urine Leukocyte Esterase 1+ /uL (Negative) Urine RBC 3596 /hpf (0 - 3) Urine WBC 24 /hpf (0 - 3) Urine Squamous Epithelial Cells Few /hpf (<5) Urine Bacteria None seen /hpf (None Seen) Urine Mucus Few (None Seen) Urine Creatinine 15.45 mg/dL (30.0-125.0) L Urine Protein/Creatinine Ratio 31.59 Urine Sodium 141 mmol/L (40-220) Urine Glucose Trace mg/dL (Normal) Urine Total Protein 488.1 mg/dL (1-14) H Microbiology Microbiology Date/Time Source Procedure Growth Status 07/11/24 04:00 Voided Urine Urine Culture - Final Complete Assessment/Plan Assessment/Plan Acute obstructive uropathy secondary to 9 mm right proximal ureteral stone: Consult for Urology Dr. [place], s/p right nephrostomy tube placement by the radiologist on 07/12/2024, urology planning for lithotripsy once creatinine improves MYRNA secondary to obstructive uropathy Acute Cystitis- Abx History of bladder cancer and left kidney cancer status post left nephrectomy Diabetes Hypothyroidism Sick sinus syndrome status post permanent pacemaker Goals of care discussion >18 mins FULL CODE Plan discussed with: Other My Orders Orders - CHRISTOPH GALINDO MD Procedure Category Date Status Time Basic Metabolic Panel LAB 07/16/24 Verified 04:00 Complete Blood Count LAB 07/16/24 Verified 04:00 Date of Service: Jul 15, 2024 Billing Provider: CHRISTOPH GALINDO MD Common Visit Codes: [id number] INP/OBS CARE(LOW) CHRISTOPH GALINDO MD Jul 15, 2024 16:42
[2024-07-15] MEDS: ACETAMINOPHEN 325 MG TAB PO PRN (22:04)
[2024-07-16] VITALS (7 sets, daily range): BP systolic 122–142; BP diastolic 69–80; PULSE 52–67; RESP 17–19; TEMP 97.9–98.3; O2SAT 96–100
[2024-07-16 06:34] LABS: Basophils # (auto) 0 10 ^3/uL (0-0.2); Basophils % (auto) 0.4 % (0.0-2.0); Eosinophils # (auto) 0.2 10 ^3/uL (0-0.8); Eosinophils % (auto) 5.6 % (0.0-7.0); Hemoglobin 12.9 g/dL (13.5-17.5); Lymphocytes # (auto) 0.6 10 ^3/uL (0.4-5.4); Lymphocytes % (auto) 13.6 % (10.0-50.0); Mean Corpuscular Hemoglobin 29.7 pg (28.0-32.0); Mean Corpuscular Hgb Conc. 35.8 g/dL (32.0-36.0); Mean Corpuscular Volume 83.1 fL (80.0-100.0); Monocytes # (auto) 0.4 10 ^3/uL (0-1.3); Neutrophils # (auto) 2.8 10 ^3/uL (1.6-8.6); Neutrophils % (auto) 69.4 % (37.0-80.0); Nucleated Red Blood Cells % 0.1 %; Platelet Count (auto) 99 10^3/uL (140-450); Red Blood Cells 4.33 10^6/uL (4.5-5.90); White Blood Cell 4.1 10^3/uL (4.4-10.8)
[2024-07-16 06:54] LABS: Anion Gap 6 (5-15); Carbon Dioxide 27 mmol/L (20-31); Chloride 109 mmol/L (98-107); Potassium 4.5 mmol/L (3.5-5.1); Sodium 142 mmol/L (136-145)
[2024-07-16 06:55] LABS: Calcium 9.4 mg/dL (8.7-10.4)
[2024-07-16 07:00] LABS: BUN/Creatinine Ratio 15.1 (10.0-20.0); Glucose 99 mg/dL (74-106)
[2024-07-16 07:02] LABS: Blood Urea Nitrogen 34 mg/dL (9-23)
--- NOTE | 2024-07-16 10:05 | ECG ---
[facility] Test Date: 2024-07-15 Test Time: 10:42:15 Pat Name: NAILA RUBALCAVA Department: Room: [facility] A Gender: M Occupational Therapy Director: jayne : 1955 Requested By: RILEY HOLLIDAY Order Number: [id number] Reading MD: Sanjeev Mares Measurements Intervals [place] Rate: 54 P: 41 AK: 152 QRS: 102 QRSD: 94 T: 31 QT: 452 QTc: 429 Interpretive Statements Sinus rhythm Right axis deviation Electronically Signed On 07-16-2024 10:48:21 PST by Sanjeev Mares Please click the below link to view image of tracing.
[2024-07-16] MEDS: IOHEXOL 300 MG/ML 100ML BOTTLE IJ ONE (11:55)
--- NOTE | 2024-07-16 12:48 | DVHPN2 ---
Progress Note Date Seen: Jul 16, 2024 Medical Necessity Reason Pt with a Central, PICC or Fol: Yes The following are medically ne: Head Catheter Reason for head catheter: Strict I&O Subjective Patient reports: Feels better Objective vital signs Vital Sign Date Time Temp Pulse Resp B/P (MAP) Pulse Ox O2 Delivery O2 Flow Rate FiO2 07/16/24 08:31 97.9 67 17 142/75 (97) 99 97.9 07/16/24 08:00 Room Air* 0 21 Total Intake and Output 07/15/24 07/15/24 07/16/24 15:00 23:00 07:00 Intake Total 150 ml 850 ml Output Total 175 ml 1575 ml 850 ml Balance -25 ml -1575 ml 0 ml medications Current Medications Medications Dose Ordered Sig/Alice Route Start Time Stop Time Status Last Admin Dose Admin Acetaminophen/ Hydrocodone Bitart 1 tab Q4HP PRN PO 07/11/24 11:15 07/14/24 04:19 1 TAB Ondansetron HCl 4 mg Q4HP PRN IV 07/11/24 11:15 Acetaminophen 650 mg Q6HP PRN PO 07/11/24 11:15 07/15/24 22:04 650 MG Morphine Sulfate 2 mg Q4HPRN PRN IV 07/11/24 11:15 07/12/24 14:30 2 MG Diagnostic Test (Pha) 1 strip ACHS 07/11/24 11:30 07/16/24 11:34 1 STRIP Insulin Human Regular ACHS SC 07/11/24 11:30 Dextrose 50 ml UD PRN IV 07/11/24 11:15 Docusate Sodium 100 mg BIDPRN PRN PO 07/13/24 11:45 07/15/24 18:07 100 MG Ceftriaxone Sodium 50 ml @ 100 mls/hr DAILY@09 IV 07/15/24 09:00 07/16/24 09:59 100 MLS/HR Tamsulosin HCl 0.4 mg QPM PO 07/14/24 18:00 07/15/24 18:07 0.4 MG Examination: GENERAL:Normal, LUNGS:Normal, ABDOMEN:Abnormal, SKIN:Abnormal, :Abnormal laboratory and microbiology Laboratory Tests 07/16/24 05:40 Test 07/16/24 05:40 Range/Units Serum Glucose 99 74-106 mg/dL Microbiology Date/Time Source Procedure Growth Status 07/11/24 04:00 Voided Urine Urine Culture - Final Complete Problem List/Assessment/Plan Problem List/Assessment/Plan 1) MYRNA in setting of obstructive uropathy of solitary kidney 2) obstructive kidney stone in proximal right ureter 3) CKD IIIb 4) DM II 5) h/o left nephrectomy 6) metabolic acidosis Kidney function is improving status post nephrostomy tube Strict I&O's Renal diet Urology consult for lithotripsy completed PCNT in right kidney as per urology No new renal recs as MYRNA resolving , will sign off Plan discussed with: Patient FREDIS WANG MD Jul 16, 2024 12:48
--- NOTE | 2024-07-16 12:48 | DVH ---
XY ANTEGRADE NEPHROSTOGRAM, HISTORY: RIGHT PROXIMAL URETERAL STONE S/P ESWL COMPARISON(S): None PROCEDURE: A captain fishing vessel radiograph of the abdomen is obtained. For checking the status of the nephrostomy tube, Omni is administered through the tube and sequential radiographs are obtained via fluoroscopy. Total fluoroscopy time is 0.4 minutes. DAP 299 FINDINGS: Slot Ambassador radiograph of the abdomen demonstrates a right nephrostomy tube. Contrast injection s hows mild hydronephrosis. A filling defect in the proximal ureter is seen and could be a stone or vanessa ris. IMPRESSION(S): A filling defect in the proximal ureter is seen and could be a kidney stone or debris. Mild hydronep hrosis, although contrast seen going down the ureter.
--- NOTE | 2024-07-16 16:37 | DVHPN2 ---
Progress Note - Dictate Date Seen: Jul 16, 2024 Has the PT tested + for MRSA If YES, has PT been informed?: No Medical Necessity Reason Pt with a Central, PICC or Fol: Yes The following are medically ne: Head Catheter Reason for head catheter: Strict I&O Subjective No pain reported vital signs Vital Sign Date Time Temp Pulse Resp B/P (MAP) Pulse Ox O2 Delivery O2 Flow Rate FiO2 07/16/24 12:54 98.3 63 19 137/80 (99) 100 98.3 07/16/24 08:00 Room Air* 0 21 Total Intake and Output 07/15/24 07/15/24 07/16/24 15:00 23:00 07:00 Intake Total 150 ml 850 ml Output Total 175 ml 1575 ml 850 ml Balance -25 ml -1575 ml 0 ml medications Current Medications Medications Dose Ordered Sig/Alice Route Start Time Stop Time Status Last Admin Dose Admin Acetaminophen/ Hydrocodone Bitart 1 tab Q4HP PRN PO 07/11/24 11:15 07/14/24 04:19 1 TAB Ondansetron HCl 4 mg Q4HP PRN IV 07/11/24 11:15 Acetaminophen 650 mg Q6HP PRN PO 07/11/24 11:15 07/15/24 22:04 650 MG Morphine Sulfate 2 mg Q4HPRN PRN IV 07/11/24 11:15 07/12/24 14:30 2 MG Diagnostic Test (Pha) 1 strip ACHS 07/11/24 11:30 07/16/24 11:34 1 STRIP Insulin Human Regular ACHS SC 07/11/24 11:30 Dextrose 50 ml UD PRN IV 07/11/24 11:15 Docusate Sodium 100 mg BIDPRN PRN PO 07/13/24 11:45 07/15/24 18:07 100 MG Ceftriaxone Sodium 50 ml @ 100 mls/hr DAILY@09 IV 07/15/24 09:00 07/16/24 09:59 100 MLS/HR Tamsulosin HCl 0.4 mg QPM PO 07/14/24 18:00 07/15/24 18:07 0.4 MG objective PATIENT: NAILA RUBALCAVAACCT: [id number] UNIT: [id number] : 1955 LOC: [facility] ROOM / BED: [facility] / A AGE / SEX: 68 / M ADM STATUS: ADM IN SERVICE 0922 ORDERING PHYSICIAN: RILEY HOLLIDAY MD PROCEDURE(s): ANTENEPHRO - ANTEGRADE NEPHROSTOGRAM REASON: RIGHT PROXIMAL URETERAL STONE S/P ESWL ORDER NUMBER(s): [id number], ACCESSION NUMBER(s): [id number] XY ANTEGRADE NEPHROSTOGRAM, HISTORY: RIGHT PROXIMAL URETERAL STONE S/P ESWL COMPARISON(S): None PROCEDURE: A linux kernel developer radiograph of the abdomen is obtained. For checking the status of the nephrostomy tube, Omni is administered through the tube and sequential radiographs are obtained via fluoroscopy. Total fluoroscopy time is 0.4 minutes. DAP 299 FINDINGS: Counter [employer] radiograph of the abdomen demonstrates a right nephrostomy tube. Contrast injection shows mild hydronephrosis. A filling defect in the proximal ureter is seen and could be a stone or debris. IMPRESSION(S): A filling defect in the proximal ureter is seen and could be a kidney stone or debris. Mild hydronephrosis, although contrast seen going down the ureter. ATED BY: SRINIVASA NASSAR MD DICTATED DATE/TIME: 07/16/24 1246 SIGNED BY: SRINIVASA NASSAR MD SIGNED DATE/TIME: 07/16/24 1246 CC: laboratory and microbiology Laboratory Tests 07/16/24 05:40 Test 07/16/24 05:40 Range/Units Serum Glucose 99 74-106 mg/dL Problem List Solitary right kidney with obstructing proximal ureteral stone, s/p failed ESWL Azotemia Assessment/Plan Right ureteroscopic laser lithotripsy with stent placement for tomorrow 0800 Dietary Evaluation Review Comments: 1. Renal Standard diet if pt is on HD treatment 2. Renal Specific-60g protein restriction diet if pt is not on dialysis 3. T2DM, add CCHO-60 to the renal diet for controlled DM Expected Outcomes/Goals: controlled DM, avoid uremic symptoms, Plan discussed with: Patient, Other RILEY HOLLIDAY MD Jul 16, 2024 16:37
--- NOTE | 2024-07-16 19:15 | DVHPN2 ---
Subjective Did not share any complaints; wondering if surgical procedure was successful or not Reviewed: Care Plan, H&P, Labs, Medications, Previous Orders, Radiology, Other (Consultations) Changes from previous H/P or p: Changes Objective Vitals Vital Signs Date Time Temp Pulse Resp B/P (MAP) Pulse Ox O2 Delivery O2 Flow Rate FiO2 07/16/24 17:23 98.1 64 17 134/78 (96) 98 98.1 07/16/24 08:00 Room Air* 0 21 Intake/Output Intake and Output 07/16/24 07:00 Intake Total 1000 ml Output Total 2600 ml Balance -1600 ml Intake Oral 850 ml IV Total 150 ml Output Urine Total 2600 ml # Bowel Movements 1 General Appearance: Alert, Oriented X3, Cooperative, No acute distress HEENT: Atraumatic Lungs: Clear to auscultation, Normal air movement Chest/Breasts: Other (Pacemaker in place) Abdomen: Normal bowel sounds, Soft, No tenderness Genitourinary: Other (Right nephrostomy tube with no leak/bleeding; with clear urine) Extremities: No edema Neuro: Normal speech, Cranial nerves 3-12 NL Skin: Other (Surgical scar of left nephrectomy) Psych/Mental Status: Mental status NL, Mood NL Medications Current Medications Medications Dose Ordered Sig/Alice Route Start Time Stop Time Status Last Admin Dose Admin Acetaminophen/ Hydrocodone Bitart 1 tab Q4HP PRN PO 07/11/24 11:15 07/14/24 04:19 1 TAB Ondansetron HCl 4 mg Q4HP PRN IV 07/11/24 11:15 Acetaminophen 650 mg Q6HP PRN PO 07/11/24 11:15 07/15/24 22:04 650 MG Morphine Sulfate 2 mg Q4HPRN PRN IV 07/11/24 11:15 07/12/24 14:30 2 MG Diagnostic Test (Pha) 1 strip ACHS 07/11/24 11:30 07/16/24 17:04 1 STRIP Insulin Human Regular ACHS SC 07/11/24 11:30 Dextrose 50 ml UD PRN IV 07/11/24 11:15 Docusate Sodium 100 mg BIDPRN PRN PO 07/13/24 11:45 07/15/24 18:07 100 MG Ceftriaxone Sodium 50 ml @ 100 mls/hr DAILY@09 IV 07/15/24 09:00 07/16/24 09:59 100 MLS/HR Tamsulosin HCl 0.4 mg QPM PO 07/14/24 18:00 07/16/24 17:12 0.4 MG Laboratory Results Laboratory Tests 07/16/24 05:40 Chemistry Test 07/16/24 05:40 Calcium Level 9.4 mg/dL (8.7-10.4) Urinalysis Test 07/13/24 09:26 Urine Color Straw (Yellow) Urine Clarity Turbid (Clear) H Urine pH 6.5 (5.0-9.0) Urine Specific [place] 1.010 (1.001-1.035) Urine Protein 3+ (Negative) H Urine Ketones Negative (Negative) Urine Blood 3+ /uL (Negative) H Urine Nitrite Negative (Negative) Urine Bilirubin Negative (Negative) Urine Urobilinogen Normal mg/dL (Negative) Urine Leukocyte Esterase 1+ /uL (Negative) Urine RBC 3596 /hpf (0 - 3) Urine WBC 24 /hpf (0 - 3) Urine Squamous Epithelial Cells Few /hpf (<5) Urine Bacteria None seen /hpf (None Seen) Urine Mucus Few (None Seen) Urine Creatinine 15.45 mg/dL (30.0-125.0) L Urine Protein/Creatinine Ratio 31.59 Urine Sodium 141 mmol/L (40-220) Urine Glucose Trace mg/dL (Normal) Urine Total Protein 488.1 mg/dL (1-14) H Microbiology Microbiology Date/Time Source Procedure Growth Status 07/11/24 04:00 Voided Urine Urine Culture - Final Complete Labs and/or images reviewed: Labs reviewed by me, Image(s) reviewed by me Assessment/Plan Assessment/Plan Covering Dr. [place]: #Acute obstructive uropathy secondary to 9 mm right proximal ureteral stone; status post right nephrostomy tube placement by the radiologist on 07/12/2024 then status post failed extracorporeal shockwave lithotripsy of right proximal ureteral calculus, and evaluating the right nephrostogram that was found antegrade by urology on July 15, 2024; continue tamsulosin; urology is following: Right ureteroscopic laser lithotripsy with stent placement for tomorrow 08:00; continue pain management as indicated; continue IV antibiotics; continue monitoring #MYRNA secondary to obstructive uropathy; can not rule out vasomotor nephropathy; avoid nephrotoxic agents; on IVF; urological management as above; continue monitoring #Acute cystitis; continue IV antibiotics; neurology is following; continue monitoring #History of bladder cancer and left kidney cancer; status post left nephrectomy; neurology is following; continue monitoring #Controlled diabetes mellitus type 2 with hemoglobin A1c of 5.6%; continue insulin sliding scale with hypoglycemia protocol; continue monitoring #Hypothyroidism; continue levothyroxine; continue monitoring #Sick sinus syndrome; status post permanent pacemaker; no active issues; continue monitoring Goals of care discussed with the patient his for 20 minutes; full code. Late Entry. This medical document was created using an electronic medical record system with computerized dictation system. Although this document has been carefully reviewed, there might still be some phonetic and typographical errors. These areas are purely typographical due to imperfections of the software programs, and do not reflect any compromise in the patient's medical care. Plan discussed with: Patient, Spouse, Other (Nurse) Date of Service: Jul 16, 2024 Billing Provider: BAM CARDOZO MD Common Visit Codes: [id number] INP/OBS CARE(HIGH) Secondary Visit Codes: [id number] CARE PLAN 30 MINUTES (20 minutes) BAM CARDOZO MD Jul 16, 2024 19:15
[2024-07-17] VITALS (9 sets, daily range): BP systolic 127–144; BP diastolic 78–81; PULSE 55–108; RESP 10–20; TEMP 97–98.2; O2SAT 95–98
[2024-07-17 07:06] LABS: Basophils # (auto) 0 10 ^3/uL (0-0.2); Basophils % (auto) 0.7 % (0.0-2.0); Eosinophils # (auto) 0.2 10 ^3/uL (0-0.8); Eosinophils % (auto) 5.1 % (0.0-7.0); Hematocrit 39.6 % (41.0-53.0); Hemoglobin 13.8 g/dL (13.5-17.5); Lymphocytes # (auto) 0.6 10 ^3/uL (0.4-5.4); Lymphocytes % (auto) 11.8 % (10.0-50.0); Mean Corpuscular Hemoglobin 29.1 pg (28.0-32.0); Mean Corpuscular Hgb Conc. 34.9 g/dL (32.0-36.0); Mean Corpuscular Volume 83.4 fL (80.0-100.0); Monocytes # (auto) 0.4 10 ^3/uL (0-1.3); Monocytes % (auto) 7.7 % (0.0-12.0); Neutrophils # (auto) 3.5 10 ^3/uL (1.6-8.6); Neutrophils % (auto) 74.7 % (37.0-80.0); Platelet Count (auto) 114 10^3/uL (140-450); Red Blood Cells 4.74 10^6/uL (4.5-5.90); Red Cell Distribution Width 14.1 % (11.8-14.3); White Blood Cell 4.7 10^3/uL (4.4-10.8)
[2024-07-17 07:32] LABS: Alanine Aminotransferase 13 U/L (7-40); Alkaline Phosphatase 61 U/L (46-116); Anion Gap 7 (5-15); Aspartate Aminotransferase 17 U/L (13-40); BUN/Creatinine Ratio 14.5 (10.0-20.0); Calcium 9.7 mg/dL (8.7-10.4); Carbon Dioxide 27 mmol/L (20-31); Potassium 4.8 mmol/L (3.5-5.1); Sodium 141 mmol/L (136-145)
[2024-07-17 07:33] LABS: Bilirubin, Total 0.6 mg/dL (0.2-1.0); Total Protein 6.3 g/dL (5.7-8.2)
[2024-07-17] MEDS: IOHEXOL 300 MG/ML 100ML BOTTLE IJ ONE ×2 (07:43→09:10)
[2024-07-17] MEDS ORDERED: fentaNYL CITRATE 100 MCG/2 ML VL ONE (08:05)
[2024-07-17] MEDS ORDERED: MIDAZOLAM HCL 2MG/2ML 2ml VIAL (1mg/ml) ONE (08:05)
[2024-07-17 08:07] LABS: Blood Urea Nitrogen 30 mg/dL (9-23); Chloride 107 mmol/L (98-107); Glucose 110 mg/dL (74-106)
[2024-07-17] MEDS ORDERED: PROPOFOL 10 MG/ML 20 ML IV ONE (08:09)
[2024-07-17] MEDS ORDERED: ONDANSETRON HCL 4 MG/2 ML VIAL ONE (08:09)
[2024-07-17] MEDS ORDERED: LIDOCAINE 2% (LOCAL ANESTH.) PF 5ml SDV ONE (08:09)
[2024-07-17] MEDS: ceFAZolin 2 GM/D5W100ml 100 ML IV ONE (08:10)
[2024-07-17] MEDS ORDERED: KETAMINE 50mg/ML 1ml syringe ONE (08:17)
[2024-07-17] MEDS: ONDANSETRON HCL 4 MG/2 ML VIAL IV ONE (09:30)
[2024-07-17] MEDS ORDERED: HYDROmorphone HCL 2 MG/ML VL/or syr IV PRN ×2 (09:30)
[2024-07-17] MEDS ORDERED: NEOSTIGMINE 1 MG/ML INJ (10mg/10ML VIAL) ONE (09:33)
[2024-07-17] MEDS ORDERED: GLYCOPYRROLATE 0.2 MG/ML 1ML VIAL ONE (09:33)
--- NOTE | 2024-07-17 09:39 | DVHOP2 ---
Operative Report - 2 Report Details Date: 07/17/24 Preop Diagnosis: Solitary right kidney with hydronephrosis secondary to an obstructing 9 mm proximal ureteral calculus Failed extracorporeal shockwave lithotripsy Postop Diagnosis: Same Surgeon: Riley Holliday Anesthesiologist: Vickie Anesthesia: General Consent: The patient was informed of the risks and benefits of the procedure. These include but are not limited to complications of anesthesia, postoperative infection, incomplete relief of symptoms, recurrence of symptoms, damage to blood vessels, nerves and tendons, deep venous thrombosis, pulmonary embolism and possible need for repeat surgery in the future. Indications for Surgery: Patient with solitary right kidney with azotemia and hydronephrosis due to an obstructing 8-9 mm proximal ureteral calculus underwent right percutaneous nephrostomy tube placement and subsequent lithotripsy on 07/15/23. Stone did not fragment properly and we will need to undergo ureteroscope laser lithotripsy with stent placement Name of Procedure Performed Cystoscopy with right retrograde pyelogram Right ureteroscopic laser lithotripsy Cystoscopy with right ureteral stent placement Removal of right percutaneous nephrostomy tube Procedure Details Procedure Details: Patient was taken to the operating room and underwent general anesthesia. He was placed in the lithotomy position with the area of the genitalia prepped and draped in usual sterile manner. Twenty-one Ukrainian rigid cystoscope was used to inspect the urethra in the bladder. Few stones were identified in the bladder and removed and sent to laboratory for evaluation. The right ureter was cannulated with six Ukrainian open-ended catheter and a retrograde pyelogram was performed demonstrating a proximal ureteral filling defect. A guidewire was passed an open-ended catheter was removed. Navigator ureteral sheath was placed over the guidewire and a flexible digital ureteroscope was used to access the proximal ureter. The stone was identified and fragmented using the 200 micron fiber in a low setting for fragmentation. Larger piece floated into the renal pelvis where the stone was treated with dusting mode and fragmented into small pieces. The right percutaneous nephrostomy tube was removed under direct vision and fluoroscopy. Ureteroscope was then removed and a guidewire was placed into the renal pelvis. Navigator sheath was removed and cystoscope was utilized to place a five Ukrainian by 26 cm polaris loop ureteral stent into the right kidney. Proper position is verified on fluoroscopy. Anesthesia was reversed and patient was awakened. He was taken to the recovery room in stable condition. Disposition: Patient will need to follow up with the urologist in his hometown area for cystoscopy with stent removal in 2-3 weeks. Specimen: Right ureteral calculus fragments Condition Fair Disposition Home RILEY HOLLIDAY MD Jul 17, 2024 09:39
--- NOTE | 2024-07-17 10:15 | DVH ---
XY C ARM FLUOROSCOPY UP TO 60MIN, HISTORY: RIGHT URETEROSCOPY WITH LASER LITHOTRIPSY TECHNICAL DATA: intraoperative fluoroscopic spot images were obtained for a right ureteroscopy and l aser lithotripsy. COMPARISON: None FINDINGS/IMPRESSION: C-arm fluoroscopic images were obtained for anatomic localization. Total fluoroscopy time was 1 deevn te and 11 seconds. DAP 12.89 mGy. Please see the operative report for further details.
--- NOTE | 2024-07-17 10:15 | DVH ---
XY C ARM FLUOROSCOPY UP TO 60MIN, HISTORY: RIGHT URETEROSCOPY WITH LASER LITHOTRIPSY TECHNICAL DATA: intraoperative fluoroscopic spot images were obtained for a right ureteroscopy and l aser lithotripsy. COMPARISON: None FINDINGS/IMPRESSION: C-arm fluoroscopic images were obtained for anatomic localization. Total fluoroscopy time was 1 deven te and 11 seconds. DAP 12.89 mGy. Please see the operative report for further details.
--- NOTE | 2024-07-17 20:01 | DVHPN2 ---
Subjective Did not share any complaint after undergoing urological procedure Reviewed: Care Plan, H&P, Labs, Medications, Previous Orders, Radiology, Other (Consultations) Changes from previous H/P or p: Changes Objective Vitals Vital Signs Date Time Temp Pulse Resp B/P (MAP) Pulse Ox O2 Delivery O2 Flow Rate FiO2 07/17/24 16:40 98.2 108 20 139/80 (99) 98 98.2 07/17/24 09:47 Mask 10.0 07/17/24 08:00 21 Intake/Output Intake and Output 07/17/24 07:00 Intake Total 1800 ml Output Total 2500 ml Balance -700 ml Intake Oral 1750 ml IV Total 50 ml Output Urine Total 2500 ml # Bowel Movements 1 General Appearance: Alert, Oriented X3, Cooperative, No acute distress HEENT: Atraumatic Lungs: Clear to auscultation, Normal air movement Chest/Breasts: Other (Pacemaker in place) Abdomen: Normal bowel sounds, Soft, No tenderness Genitourinary: Other (Right nephrostomy tube removal site with no leak/bleeding) Extremities: No edema Neuro: Normal speech, Cranial nerves 3-12 NL Skin: Other (Surgical scar of left nephrectomy) Psych/Mental Status: Mental status NL, Mood NL Medications Current Medications Medications Dose Ordered Sig/Alice Route Start Time Stop Time Status Last Admin Dose Admin Acetaminophen/ Hydrocodone Bitart 1 tab Q4HP PRN PO 07/11/24 11:15 07/14/24 04:19 1 TAB Ondansetron HCl 4 mg Q4HP PRN IV 07/11/24 11:15 Acetaminophen 650 mg Q6HP PRN PO 07/11/24 11:15 07/17/24 16:43 650 MG Morphine Sulfate 2 mg Q4HPRN PRN IV 07/11/24 11:15 07/12/24 14:30 2 MG Diagnostic Test (Pha) 1 strip ACHS 07/11/24 11:30 07/17/24 16:39 1 STRIP Insulin Human Regular ACHS SC 07/11/24 11:30 Dextrose 50 ml UD PRN IV 07/11/24 11:15 Docusate Sodium 100 mg BIDPRN PRN PO 07/13/24 11:45 07/15/24 18:07 100 MG Ceftriaxone Sodium 50 ml @ 100 mls/hr DAILY@09 IV 07/15/24 09:00 07/17/24 11:34 100 MLS/HR Tamsulosin HCl 0.4 mg QPM PO 07/14/24 18:00 07/17/24 17:34 0.4 MG Laboratory Results Laboratory Tests 07/17/24 06:41 Chemistry Test 07/17/24 06:41 Albumin 4.0 g/dL (3.2-4.8) Calcium Level 9.7 mg/dL (8.7-10.4) Total Protein 6.3 g/dL (5.7-8.2) LFT Test 07/17/24 06:41 Alanine Aminotransferase (ALT) 13 U/L (7-40) Alkaline Phosphatase 61 U/L (46-116) Aspartate Amino Transferase (AST) 17 U/L (13-40) Total Bilirubin 0.6 mg/dL (0.2-1.0) Urinalysis Test 07/13/24 09:26 Urine Color Straw (Yellow) Urine Clarity Turbid (Clear) H Urine pH 6.5 (5.0-9.0) Urine Specific [place] 1.010 (1.001-1.035) Urine Protein 3+ (Negative) H Urine Ketones Negative (Negative) Urine Blood 3+ /uL (Negative) H Urine Nitrite Negative (Negative) Urine Bilirubin Negative (Negative) Urine Urobilinogen Normal mg/dL (Negative) Urine Leukocyte Esterase 1+ /uL (Negative) Urine RBC 3596 /hpf (0 - 3) Urine WBC 24 /hpf (0 - 3) Urine Squamous Epithelial Cells Few /hpf (<5) Urine Bacteria None seen /hpf (None Seen) Urine Mucus Few (None Seen) Urine Creatinine 15.45 mg/dL (30.0-125.0) L Urine Protein/Creatinine Ratio 31.59 Urine Sodium 141 mmol/L (40-220) Urine Glucose Trace mg/dL (Normal) Urine Total Protein 488.1 mg/dL (1-14) H Microbiology Microbiology Date/Time Source Procedure Growth Status 07/11/24 04:00 Voided Urine Urine Culture - Final Complete Labs and/or images reviewed: Labs reviewed by me, Image(s) reviewed by me Assessment/Plan Assessment/Plan Covering Dr. Beaver: #Acute obstructive uropathy secondary to 9 mm right proximal ureteral stone; status post cystoscopy with right retrograde pyelogram, right ureteroscopic laser lithotripsy, right ureteral stent placement, and removal of right percutaneous nephrostomy tube this morning; status post right nephrostomy tube placement by the radiologist on 07/12/2024 then status post failed extracorporeal shockwave lithotripsy of right proximal ureteral calculus, and evaluating the right nephrostogram that was found antegrade by urology on July 15, 2024; continue tamsulosin; urology is following; continue pain management as indicated; continue IV antibiotics; continue monitoring #MYRNA secondary to obstructive uropathy; can not rule out vasomotor nephropathy; avoid nephrotoxic agents; on IVF; urological management as above; continue monitoring #Acute cystitis; continue IV antibiotics; neurology is following; continue monitoring #History of bladder cancer and left kidney cancer; status post left nephrectomy; neurology is following; continue monitoring #Controlled diabetes mellitus type 2 with hemoglobin A1c of 5.6%; continue insulin sliding scale with hypoglycemia protocol; continue monitoring #Hypothyroidism; continue levothyroxine; continue monitoring #Sick sinus syndrome; status post permanent pacemaker; no active issues; continue monitoring Late Entry. This medical document was created using an electronic medical record system with computerized dictation system. Although this document has been carefully reviewed, there might still be some phonetic and typographical errors. These areas are purely typographical due to imperfections of the software programs, and do not reflect any compromise in the patient's medical care. Plan discussed with: Patient, Spouse, Other (Nurse) My Orders Orders - BAM CARDOZO MD Procedure Category Date Status Time Cover Wound With Foam YFN 07/17/24 In Process Dressing 11:59 Consistent DIET 07/17/24 Transmitted Carb(Ccho)Diabetes Lunch Date of Service: Jul 17, 2024 Billing Provider: BAM CARDOZO MD Common Visit Codes: [id number] INP/OBS CARE(HIGH) BAM CARDOZO MD Jul 17, 2024 20:01
[2024-07-18 05:00] VITALS: BP 127/79; PULSE 70; RESP 17; TEMP 98.5; O2SAT 98
[2024-07-18 06:56] LABS: Basophils # (auto) 0 10 ^3/uL (0-0.2); Basophils % (auto) 0.6 % (0.0-2.0); Eosinophils # (auto) 0.3 10 ^3/uL (0-0.8); Hematocrit 40.1 % (41.0-53.0); Hemoglobin 13.8 g/dL (13.5-17.5); Lymphocytes # (auto) 0.5 10 ^3/uL (0.4-5.4); Lymphocytes % (auto) 8.8 % (10.0-50.0); Mean Corpuscular Hemoglobin 28.7 pg (28.0-32.0); Mean Corpuscular Hgb Conc. 34.4 g/dL (32.0-36.0); Mean Corpuscular Volume 83.3 fL (80.0-100.0); Monocytes # (auto) 0.5 10 ^3/uL (0-1.3); Monocytes % (auto) 9.5 % (0.0-12.0); Neutrophils % (auto) 76.1 % (37.0-80.0); Nucleated Red Blood Cells % 0.1 %; Platelet Count (auto) 113 10^3/uL (140-450); Red Blood Cells 4.81 10^6/uL (4.5-5.90); Red Cell Distribution Width 13.7 % (11.8-14.3); White Blood Cell 5.3 10^3/uL (4.4-10.8)
[2024-07-18 07:32] LABS: Alanine Aminotransferase 14 U/L (7-40); Albumin 4.1 g/dL (3.2-4.8); Alkaline Phosphatase 64 U/L (46-116); Anion Gap 5 (5-15); Aspartate Aminotransferase 17 U/L (13-40); BUN/Creatinine Ratio 13.2 (10.0-20.0); Bilirubin, Total 0.6 mg/dL (0.2-1.0); Calcium 9.9 mg/dL (8.7-10.4); Carbon Dioxide 29 mmol/L (20-31); Chloride 106 mmol/L (98-107); Potassium 4.2 mmol/L (3.5-5.1); Sodium 140 mmol/L (136-145)
[2024-07-18 07:33] LABS: Total Protein 6.5 g/dL (5.7-8.2)
[2024-07-18 07:34] LABS: Blood Urea Nitrogen 30 mg/dL (9-23); Glucose 109 mg/dL (74-106)
[2024-07-18 09:00] VITALS: BP 122/78; PULSE 71; RESP 18; TEMP 97.7; O2SAT 99
[2024-07-18 13:00] VITALS: BP 134/83; PULSE 64; RESP 18; TEMP 98.2; O2SAT 98
[2024-07-18 17:00] VITALS: BP 120/81; PULSE 66; RESP 18; TEMP 98.3; O2SAT 98
--- NOTE | 2024-07-18 19:00 | DVHPN2 ---
Subjective Did not share any complaint Reviewed: Care Plan, H&P, Labs, Medications, Previous Orders, Radiology, Other (Consultations) Changes from previous H/P or p: No Changes Objective Vitals Vital Signs Date Time Temp Pulse Resp B/P (MAP) Pulse Ox O2 Delivery O2 Flow Rate FiO2 07/18/24 17:00 98.3 66 18 120/81 (94) 98 98.3 07/18/24 08:10 Room Air* 0 21 Intake/Output Intake and Output 07/18/24 07:00 Intake Total 1670 ml Output Total 200 ml Balance 1470 ml Intake Oral 1620 ml IV Total 50 ml Output Urine Total 200 ml # Voids 8 # Bowel Movements 1 General Appearance: Alert, Oriented X3, Cooperative, No acute distress HEENT: Atraumatic Lungs: Clear to auscultation, Normal air movement Chest/Breasts: Other (Pacemaker in place) Abdomen: Normal bowel sounds, Soft, No tenderness Genitourinary: Other (Right nephrostomy tube removal site with no leak/bleeding) Extremities: No edema Neuro: Normal speech, Cranial nerves 3-12 NL Skin: Other (Surgical scar of left nephrectomy) Psych/Mental Status: Mental status NL, Mood NL Medications Current Medications Medications Dose Ordered Sig/Alice Route Start Time Stop Time Status Last Admin Dose Admin Acetaminophen/ Hydrocodone Bitart 1 tab Q4HP PRN PO 07/11/24 11:15 07/14/24 04:19 1 TAB Ondansetron HCl 4 mg Q4HP PRN IV 07/11/24 11:15 Acetaminophen 650 mg Q6HP PRN PO 07/11/24 11:15 07/17/24 16:43 650 MG Morphine Sulfate 2 mg Q4HPRN PRN IV 07/11/24 11:15 07/12/24 14:30 2 MG Diagnostic Test (Pha) 1 strip ACHS 07/11/24 11:30 07/18/24 16:56 1 STRIP Insulin Human Regular ACHS SC 07/11/24 11:30 Dextrose 50 ml UD PRN IV 07/11/24 11:15 Docusate Sodium 100 mg BIDPRN PRN PO 07/13/24 11:45 07/15/24 18:07 100 MG Ceftriaxone Sodium 50 ml @ 100 mls/hr DAILY@09 IV 07/15/24 09:00 07/18/24 09:34 100 MLS/HR Tamsulosin HCl 0.4 mg QPM PO 07/14/24 18:00 07/17/24 17:34 0.4 MG Laboratory Results Laboratory Tests 07/18/24 06:20 Chemistry Test 07/18/24 06:20 Albumin 4.1 g/dL (3.2-4.8) Calcium Level 9.9 mg/dL (8.7-10.4) Total Protein 6.5 g/dL (5.7-8.2) LFT Test 07/18/24 06:20 Alanine Aminotransferase (ALT) 14 U/L (7-40) Alkaline Phosphatase 64 U/L (46-116) Aspartate Amino Transferase (AST) 17 U/L (13-40) Total Bilirubin 0.6 mg/dL (0.2-1.0) Urinalysis Test 07/13/24 09:26 Urine Color Straw (Yellow) Urine Clarity Turbid (Clear) H Urine pH 6.5 (5.0-9.0) Urine Specific [place] 1.010 (1.001-1.035) Urine Protein 3+ (Negative) H Urine Ketones Negative (Negative) Urine Blood 3+ /uL (Negative) H Urine Nitrite Negative (Negative) Urine Bilirubin Negative (Negative) Urine Urobilinogen Normal mg/dL (Negative) Urine Leukocyte Esterase 1+ /uL (Negative) Urine RBC 3596 /hpf (0 - 3) Urine WBC 24 /hpf (0 - 3) Urine Squamous Epithelial Cells Few /hpf (<5) Urine Bacteria None seen /hpf (None Seen) Urine Mucus Few (None Seen) Urine Creatinine 15.45 mg/dL (30.0-125.0) L Urine Protein/Creatinine Ratio 31.59 Urine Sodium 141 mmol/L (40-220) Urine Glucose Trace mg/dL (Normal) Urine Total Protein 488.1 mg/dL (1-14) H Microbiology Microbiology Date/Time Source Procedure Growth Status 07/11/24 04:00 Voided Urine Urine Culture - Final Complete Labs and/or images reviewed: Labs reviewed by me, Image(s) reviewed by me Assessment/Plan Assessment/Plan Covering Dr. Beaver: #Acute obstructive uropathy secondary to 9 mm right proximal ureteral stone; status post cystoscopy with right retrograde pyelogram, right ureteroscopic laser lithotripsy, right ureteral stent placement, and removal of right percutaneous nephrostomy tube on July 17, 2024; status post right nephrostomy tube placement by the radiologist on 07/12/2024 then status post failed extracorporeal shockwave lithotripsy of right proximal ureteral calculus, and evaluating the right nephrostogram that was found antegrade by urology on July 15, 2024; continue tamsulosin; urology is following; continue pain management as indicated; continue IV antibiotics; continue monitoring #MYRNA secondary to obstructive uropathy; can not rule out vasomotor nephropathy; avoid nephrotoxic agents; on IVF; urological management as above; worsening after yesterday procedure; continue monitoring #Acute cystitis; continue IV antibiotics; neurology is following; continue monitoring #History of bladder cancer and left kidney cancer; status post left nephrectomy; neurology is following; continue monitoring #Controlled diabetes mellitus type 2 with hemoglobin A1c of 5.6%; continue insulin sliding scale with hypoglycemia protocol; continue monitoring #Hypothyroidism; continue levothyroxine; continue monitoring #Sick sinus syndrome; status post permanent pacemaker; no active issues; continue monitoring To be discharged when kidney function is stable or improving. Late Entry. This medical document was created using an electronic medical record system with computerized dictation system. Although this document has been carefully reviewed, there might still be some phonetic and typographical errors. These areas are purely typographical due to imperfections of the software programs, and do not reflect any compromise in the patient's medical care. Plan discussed with: Patient, Spouse, Other (Nurse) Date of Service: Jul 18, 2024 Billing Provider: BAM CARDOZO MD Common Visit Codes: [id number] INP/OBS CARE(HIGH) BAM CARDOZO MD Jul 18, 2024 18:59
[2024-07-18 20:00] VITALS: PULSE 63; RESP 17; O2SAT 99
[2024-07-18 21:00] VITALS: BP 125/81; PULSE 63; RESP 17; TEMP 97.9; O2SAT 99
[2024-07-19 01:00] VITALS: BP 128/83; PULSE 64; RESP 18; TEMP 97.8; O2SAT 95
[2024-07-19 05:00] VITALS: BP 130/78; PULSE 69; RESP 17; TEMP 97.6; O2SAT 97
[2024-07-19 06:47] LABS: Anion Gap 8 (5-15); Carbon Dioxide 26 mmol/L (20-31); Chloride 107 mmol/L (98-107); Potassium 4.4 mmol/L (3.5-5.1); Sodium 141 mmol/L (136-145)
[2024-07-19 06:48] LABS: Calcium 9.8 mg/dL (8.7-10.4)
[2024-07-19 06:53] LABS: BUN/Creatinine Ratio 14.2 (10.0-20.0); Glucose 106 mg/dL (74-106)
[2024-07-19 07:02] LABS: Blood Urea Nitrogen 31 mg/dL (9-23)
[2024-07-19 07:30] LABS: Basophils # (auto) 0 10 ^3/uL (0-0.2); Eosinophils # (auto) 0.3 10 ^3/uL (0-0.8); Eosinophils % (auto) 7.5 % (0.0-7.0); Lymphocytes # (auto) 0.5 10 ^3/uL (0.4-5.4); Lymphocytes % (auto) 11.6 % (10.0-50.0); Mean Corpuscular Hemoglobin 29.3 pg (28.0-32.0); Mean Corpuscular Volume 83.7 fL (80.0-100.0); Monocytes # (auto) 0.4 10 ^3/uL (0-1.3); Monocytes % (auto) 8.2 % (0.0-12.0); Neutrophils # (auto) 3.2 10 ^3/uL (1.6-8.6); Neutrophils % (auto) 71.7 % (37.0-80.0); Platelet Count (auto) 116 10^3/uL (140-450); Red Blood Cells 4.42 10^6/uL (4.5-5.90); Red Cell Distribution Width 13.8 % (11.8-14.3); White Blood Cell 4.5 10^3/uL (4.4-10.8)
[2024-07-19 08:00] VITALS: PULSE 58; RESP 18; O2SAT 100
[2024-07-19 08:25] VITALS: BP 125/83; PULSE 58; RESP 18; TEMP 97.8; O2SAT 100
--- NOTE | 2024-07-19 09:40 | DVHPN2 ---
Reviewed: Care Plan, H&P, Labs, Medications, Previous Orders, Radiology, Other (Consultations) Changes from previous H/P or p: No Changes Objective Vitals Vital Signs Date Time Temp Pulse Resp B/P (MAP) Pulse Ox O2 Delivery O2 Flow Rate FiO2 07/19/24 08:25 97.8 58 18 125/83 (97) 100 97.8 07/18/24 20:00 Room Air* 0 21 Intake/Output Intake and Output 07/19/24 07:00 Intake Total 3410 ml Balance 3410 ml Intake Oral 3360 ml IV Total 50 ml # Voids 7 General Appearance: Alert, Oriented X3, Cooperative, No acute distress HEENT: Atraumatic Lungs: Clear to auscultation, Normal air movement Chest/Breasts: Other (Pacemaker in place) Abdomen: Normal bowel sounds, Soft, No tenderness Genitourinary: Other (Right nephrostomy tube removal site with no leak/bleeding) Extremities: No edema Neuro: Normal speech, Cranial nerves 3-12 NL Skin: Other (Surgical scar of left nephrectomy) Psych/Mental Status: Mental status NL, Mood NL Medications Current Medications Medications Dose Ordered Sig/Alice Route Start Time Stop Time Status Last Admin Dose Admin Acetaminophen/ Hydrocodone Bitart 1 tab Q4HP PRN PO 07/11/24 11:15 07/14/24 04:19 1 TAB Ondansetron HCl 4 mg Q4HP PRN IV 07/11/24 11:15 Acetaminophen 650 mg Q6HP PRN PO 07/11/24 11:15 07/17/24 16:43 650 MG Morphine Sulfate 2 mg Q4HPRN PRN IV 07/11/24 11:15 07/12/24 14:30 2 MG Diagnostic Test (Pha) 1 strip ACHS 07/11/24 11:30 07/19/24 06:31 1 STRIP Insulin Human Regular ACHS SC 07/11/24 11:30 Dextrose 50 ml UD PRN IV 07/11/24 11:15 Docusate Sodium 100 mg BIDPRN PRN PO 07/13/24 11:45 07/15/24 18:07 100 MG Ceftriaxone Sodium 50 ml @ 100 mls/hr DAILY@09 IV 07/15/24 09:00 07/19/24 08:56 100 MLS/HR Tamsulosin HCl 0.4 mg QPM PO 07/14/24 18:00 1/5/25 19:00 0.4 MG Laboratory Results Laboratory Tests 07/19/24 05:38 Chemistry Test 07/19/24 05:38 Calcium Level 9.8 mg/dL (8.7-10.4) Urinalysis Test 07/13/24 09:26 Urine Color Straw (Yellow) Urine Clarity Turbid (Clear) H Urine pH 6.5 (5.0-9.0) Urine Specific [place] 1.010 (1.001-1.035) Urine Protein 3+ (Negative) H Urine Ketones Negative (Negative) Urine Blood 3+ /uL (Negative) H Urine Nitrite Negative (Negative) Urine Bilirubin Negative (Negative) Urine Urobilinogen Normal mg/dL (Negative) Urine Leukocyte Esterase 1+ /uL (Negative) Urine RBC 3596 /hpf (0 - 3) Urine WBC 24 /hpf (0 - 3) Urine Squamous Epithelial Cells Few /hpf (<5) Urine Bacteria None seen /hpf (None Seen) Urine Mucus Few (None Seen) Urine Creatinine 15.45 mg/dL (30.0-125.0) L Urine Protein/Creatinine Ratio 31.59 Urine Sodium 141 mmol/L (40-220) Urine Glucose Trace mg/dL (Normal) Urine Total Protein 488.1 mg/dL (1-14) H Microbiology Microbiology Date/Time Source Procedure Growth Status 07/11/24 04:00 Voided Urine Urine Culture - Final Complete Labs and/or images reviewed: Labs reviewed by me, Image(s) reviewed by me Assessment/Plan Assessment/Plan #Acute obstructive uropathy secondary to 9 mm right proximal ureteral stone; status post cystoscopy with right retrograde pyelogram, right ureteroscopic laser lithotripsy, right ureteral stent placement, and removal of right percutaneous nephrostomy tube on July 17, 2024; status post right nephrostomy tube placement by the radiologist on 07/12/2024 then status post failed extracorporeal shockwave lithotripsy of right proximal ureteral calculus, and evaluating the right nephrostogram that was found antegrade by urology on July 15, 2024; continue tamsulosin; urology is following; continue pain management as indicated; continue IV antibiotics; continue monitoring #MYRNA secondary to obstructive uropathy; can not rule out vasomotor nephropathy; avoid nephrotoxic agents; on IVF; urological management as above; worsening after yesterday procedure; continue monitoring #Acute cystitis; continue IV antibiotics; neurology is following; continue monitoring #History of bladder cancer and left kidney cancer; status post left nephrectomy; neurology is following; continue monitoring #Controlled diabetes mellitus type 2 with hemoglobin A1c of 5.6%; continue insulin sliding scale with hypoglycemia protocol; continue monitoring #Hypothyroidism; continue levothyroxine; continue monitoring #Sick sinus syndrome; status post permanent pacemaker; no active issues; continue monitoring Plan discussed with: Patient Date of Service: Jul 19, 2024 Billing Provider: CORAZON FAJARDO MD Common Visit Codes: [id number] INP/OBS CARE(HIGH) CORAZON FAJARDO MD Jul 19, 2024 09:40
--- NOTE | 2024-07-19 09:47 | DVHPN2 ---
Reviewed: Care Plan, H&P, Labs, Medications, Previous Orders, Radiology, Other (Consultations) Changes from previous H/P or p: No Changes Objective Vitals Vital Signs Date Time Temp Pulse Resp B/P (MAP) Pulse Ox O2 Delivery O2 Flow Rate FiO2 07/19/24 08:25 97.8 58 18 125/83 (97) 100 97.8 07/18/24 20:00 Room Air* 0 21 Intake/Output Intake and Output 07/19/24 07:00 Intake Total 3410 ml Balance 3410 ml Intake Oral 3360 ml IV Total 50 ml # Voids 7 General Appearance: Alert, Oriented X3, Cooperative, No acute distress HEENT: Atraumatic Lungs: Clear to auscultation, Normal air movement Chest/Breasts: Other (Pacemaker in place) Abdomen: Normal bowel sounds, Soft, No tenderness Genitourinary: Other (Right nephrostomy tube removal site with no leak/bleeding) Extremities: No edema Neuro: Normal speech, Cranial nerves 3-12 NL Skin: Other (Surgical scar of left nephrectomy) Psych/Mental Status: Mental status NL, Mood NL Medications Current Medications Medications Dose Ordered Sig/Alice Route Start Time Stop Time Status Last Admin Dose Admin Acetaminophen/ Hydrocodone Bitart 1 tab Q4HP PRN PO 07/11/24 11:15 07/14/24 04:19 1 TAB Ondansetron HCl 4 mg Q4HP PRN IV 07/11/24 11:15 Acetaminophen 650 mg Q6HP PRN PO 07/11/24 11:15 07/17/24 16:43 650 MG Morphine Sulfate 2 mg Q4HPRN PRN IV 07/11/24 11:15 07/12/24 14:30 2 MG Diagnostic Test (Pha) 1 strip ACHS 07/11/24 11:30 07/19/24 06:31 1 STRIP Insulin Human Regular ACHS SC 07/11/24 11:30 Dextrose 50 ml UD PRN IV 07/11/24 11:15 Docusate Sodium 100 mg BIDPRN PRN PO 07/13/24 11:45 07/15/24 18:07 100 MG Ceftriaxone Sodium 50 ml @ 100 mls/hr DAILY@09 IV 07/15/24 09:00 07/19/24 08:56 100 MLS/HR Tamsulosin HCl 0.4 mg QPM PO 07/14/24 18:00 1/5/25 19:00 0.4 MG Laboratory Results Laboratory Tests 07/19/24 05:38 Chemistry Test 07/19/24 05:38 Calcium Level 9.8 mg/dL (8.7-10.4) Urinalysis Test 07/13/24 09:26 Urine Color Straw (Yellow) Urine Clarity Turbid (Clear) H Urine pH 6.5 (5.0-9.0) Urine Specific [place] 1.010 (1.001-1.035) Urine Protein 3+ (Negative) H Urine Ketones Negative (Negative) Urine Blood 3+ /uL (Negative) H Urine Nitrite Negative (Negative) Urine Bilirubin Negative (Negative) Urine Urobilinogen Normal mg/dL (Negative) Urine Leukocyte Esterase 1+ /uL (Negative) Urine RBC 3596 /hpf (0 - 3) Urine WBC 24 /hpf (0 - 3) Urine Squamous Epithelial Cells Few /hpf (<5) Urine Bacteria None seen /hpf (None Seen) Urine Mucus Few (None Seen) Urine Creatinine 15.45 mg/dL (30.0-125.0) L Urine Protein/Creatinine Ratio 31.59 Urine Sodium 141 mmol/L (40-220) Urine Glucose Trace mg/dL (Normal) Urine Total Protein 488.1 mg/dL (1-14) H Microbiology Microbiology Date/Time Source Procedure Growth Status 07/11/24 04:00 Voided Urine Urine Culture - Final Complete Labs and/or images reviewed: Labs reviewed by me, Image(s) reviewed by me Assessment/Plan Assessment/Plan #Acute obstructive uropathy secondary to 9 mm right proximal ureteral stone; status post cystoscopy with right retrograde pyelogram, right ureteroscopic laser lithotripsy, right ureteral stent placement, and removal of right percutaneous nephrostomy tube on July 17, 2024; status post right nephrostomy tube placement by the radiologist on 07/12/2024 then status post failed extracorporeal shockwave lithotripsy of right proximal ureteral calculus, and evaluating the right nephrostogram that was found antegrade by urology on July 15, 2024; continue tamsulosin; urology is following; continue pain management as indicated; continue IV antibiotics; continue monitoring #MYRNA secondary to obstructive uropathy; seen by social media executive, now resolved, Nephrology signed off #Acute cystitis; continue IV Rocephin , urine cultures negative #History of bladder cancer and left kidney cancer; status post left nephrectomy; #Controlled diabetes mellitus type 2 with hemoglobin A1c of 5.6%; continue insulin sliding scale with hypoglycemia protocol; continue monitoring #Hypothyroidism; continue levothyroxine; continue monitoring #Sick sinus syndrome; status post permanent pacemaker; no active issues; continue monitoring Urine cultures negative Plan discussed with: Patient Date of Service: Jul 19, 2024 Billing Provider: CORAZON FAJARDO MD Common Visit Codes: [id number] INP/OBS CARE(HIGH) CORAZON FAJARDO MD Jul 19, 2024 09:47
[2024-07-19] MEDS ORDERED: HYDR-4902 PO (10:36)
[2024-07-19] MEDS ORDERED: CIPR-173 PO (10:36)
[2024-07-19] MEDS ORDERED: TAMS-35 PO (10:36)
--- NOTE | 2024-07-19 10:47 | DVHDS2 ---
Discharge Summary Date of Admission Jul 11, 2024 at 11:07 Date of Discharge: Jul 19, 2024 Admitting Diagnosis Right flank pain Wounds: Right lithotripsy right ureteral stent placement right percutaneous nephrostomy tube placement Labs/Diagnostic Data: Laboratory Results Test 07/19/24 05:38 07/18/24 06:20 07/15/24 11:16 07/13/24 09:26 White Blood Count 4.5 10^3/uL (4.4-10.8) Red Blood Count 4.42 10^6/uL (4.5-5.90) Hemoglobin 13.0 g/dL (13.5-17.5) Hematocrit 37.0 % (41.0-53.0) Mean Corpuscular Volume 83.7 fL (80.0-100.0) Mean Corpuscular Hemoglobin 29.3 pg (28.0-32.0) Mean Corpuscular Hemoglobin Concent 35.0 g/dL (32.0-36.0) Red Cell Distribution Width 13.8 % (11.8-14.3) Platelet Count 116 10^3/uL (140-450) Mean Platelet Volume 9.2 fL (6.9-10.8) Neutrophils (%) (Auto) 71.7 % (37.0-80.0) Lymphocytes (%) (Auto) 11.6 % (10.0-50.0) Monocytes (%) (Auto) 8.2 % (0.0-12.0) Eosinophils (%) (Auto) 7.5 % (0.0-7.0) Basophils (%) (Auto) 1.0 % (0.0-2.0) Neutrophils # (Auto) 3.2 10 ^3/uL (1.6-8.6) Lymphocytes # (Auto) 0.5 10 ^3/uL (0.4-5.4) Monocytes # (Auto) 0.4 10 ^3/uL (0-1.3) Eosinophils # (Auto) 0.3 10 ^3/uL (0-0.8) Basophils # (Auto) 0 10 ^3/uL (0-0.2) Nucleated Red Blood Cells 0.0 % Sodium Level 141 mmol/L (136-145) Potassium Level 4.4 mmol/L (3.5-5.1) Chloride Level 107 mmol/L (98-107) Carbon Dioxide Level 26 mmol/L (20-31) Anion Gap 8 (5-15) Blood Urea Nitrogen 31 mg/dL (9-23) Creatinine 2.18 mg/dL (0.700-1.30) Glomerular Filtration Rate Calc 32 mL/min (>90) BUN/Creatinine Ratio 14.2 (10.0-20.0) Serum Glucose 106 mg/dL (74-106) Calcium Level 9.8 mg/dL (8.7-10.4) Total Bilirubin 0.6 mg/dL (0.2-1.0) Aspartate Amino Transferase (AST) 17 U/L (13-40) Alanine Aminotransferase (ALT) 14 U/L (7-40) Alkaline Phosphatase 64 U/L (46-116) Total Protein 6.5 g/dL (5.7-8.2) Albumin 4.1 g/dL (3.2-4.8) POC Glucose 99 mg/dl (70-106) Urine Color Straw (Yellow) Urine Clarity Turbid (Clear) Urine pH 6.5 (5.0-9.0) Urine Specific [place] 1.010 (1.001-1.035) Urine Protein 3+ (Negative) Urine Ketones Negative (Negative) Urine Blood 3+ /uL (Negative) Urine Nitrite Negative (Negative) Urine Bilirubin Negative (Negative) Urine Urobilinogen Normal mg/dL (Negative) Urine Leukocyte Esterase 1+ /uL (Negative) Urine RBC 3596 /hpf (0 - 3) Urine WBC 24 /hpf (0 - 3) Urine Squamous Epithelial Cells Few /hpf (<5) Urine Bacteria None seen /hpf (None Seen) Urine Mucus Few (None Seen) Urine Creatinine 15.45 mg/dL (30.0-125.0) Urine Protein/Creatinine Ratio 31.59 Urine Sodium 141 mmol/L (40-220) Urine Glucose Trace mg/dL (Normal) Urine Total Protein 488.1 mg/dL (1-14) Test 07/12/24 21:26 07/12/24 05:07 07/11/24 07:17 Phosphorus Level 6.4 mg/dL (2.4-5.1) Vitamin D 25-Hydroxy 30.7 ng/mL (30.0-100) Parathyroid Hormone (Intact) 194.9 pg/mL (18.4-80.1) Prothrombin Time 10.9 sec (9.3-11.8) Prothrombin Time INR 1.03 (0.9-1.15) Activated Partial Thromboplast Time 35.0 SEC (24.5-34.5) Free Prostate Specific Antigen 1.04 ng/mL (N/A) Percent Free Prostate Specific Ag 34.7 % (.) Prostate Specific Antigen Total 3.0 ng/mL (0.0-4.0) Hemoglobin A1c 5.6 % A1C (<5.7) Triglycerides Level 104 mg/dL (< 150) Cholesterol Level 165 mg/dL (< 200) LDL Cholesterol 110 mg/dL (< 100) HDL Cholesterol 39 mg/dL (40-59) Thyroid Stimulating Hormone (TSH) 2.26 uIU/mL (0.55-4.78) Other Laboratory Tests 07/19/24 05:38 Brief Hx & Hospital Course: 68-year-old male who lives in [facility] visiting his relatives in the [facility] [place] came in complaining of pain in the right side flank. Found to have 9 mm right proximal ureteral stone. The patient had right nephrostomy tube placed by radiologist. Subsequently patient underwent right iliac without drift CP with the placement of right ureteral stent and removal of the right nephrostomy tube by Urology Dr. [place]. Patient has history of bladder cancer and left kidney cancer status post left nephrectomy. Patient had acute kidney injury seen by wafer cleaner which has since resolved UTI treated with Rocephin urine cultures are negative diabetes and hypothyroidism addressed accordingly patient being discharged home on Cipro for UTI Flomax and [place]. He was advised to follow up with his urologist at [place] for removal of the right nephrostomy tube in 2-3 weeks. at the bedside and discharge plan discussed with the patient and his Consults/Reason for consult Urology Dr. Boston Radiologist Operations or Procedures Right nephrostomy tube placement Right lithotripsy Right ureteral stent placement Condition at Discharge: Fair Final Diagnosis/Problems List #Acute obstructive uropathy secondary to 9 mm right proximal ureteral stone; status post cystoscopy with right retrograde pyelogram, right ureteroscopic laser lithotripsy, right ureteral stent placement, and removal of right percutaneous nephrostomy tube on July 17, 2024; status post right nephrostomy tube placement by the radiologist on 07/12/2024 then status post failed extracorporeal shockwave lithotripsy of right proximal ureteral calculus, and evaluating the right nephrostogram that was found antegrade by urology on July 15, 2024; continue tamsulosin; urology is following; continue pain management as indicated; continue IV antibiotics; continue monitoring #MYRNA secondary to obstructive uropathy; seen by wafer cleaner, now resolved, Nephrology signed off #Acute cystitis; continue IV Rocephin , urine cultures negative #History of bladder cancer and left kidney cancer; status post left nephrectomy; #Controlled diabetes mellitus type 2 with hemoglobin A1c of 5.6%; continue insulin sliding scale with hypoglycemia protocol; continue monitoring #Hypothyroidism; continue levothyroxine; continue monitoring #Sick sinus syndrome; status post permanent pacemaker; no active issues; continue monitoring Urine cultures negative Discharge Disposition: Home Discharge Instruct/Medications Diet: Cardiac 2g Na,low cholest Activity: Light activity Follow Up/Referral: Follow up with your primary Dr in one week Follow up with your urologist in 2-3 weeks for removal of the right ureteral stent Follow up with your wafer cleaner in one week Resume all your previous home medications Medications: Flomax [place] Cipro Transmitted to [facility] [id number] (Time taken for discharge summary 35 minutes ) Discharge Statement: "Patient was advised to return to the ER or call 911 if any headaches, dizziness, shortness of breath, chest pain, abdominal pain, bleeding, fevers, or worsening of medical condition. Patient was counseled about treatment plan, medications, possible side effects, patientverbalized understanding. All questions were answered to the best of my ability. This discharge took greater then 30 minutes in planning, reviewing documentation, counseling the patient, and discussing with other team members." ASSESSMENT ASSESSMENT Hospital Course Improved Assessment #Acute obstructive uropathy secondary to 9 mm right proximal ureteral stone; status post cystoscopy with right retrograde pyelogram, right ureteroscopic laser lithotripsy, right ureteral stent placement, and removal of right percutaneous nephrostomy tube on July 17, 2024; status post right nephrostomy tube placement by the radiologist on 07/12/2024 then status post failed extracorporeal shockwave lithotripsy of right proximal ureteral calculus, and evaluating the right nephrostogram that was found antegrade by urology on July 15, 2024; continue tamsulosin; urology is following; continue pain management as indicated; continue IV antibiotics; continue monitoring #MYRNA secondary to obstructive uropathy; seen by wafer cleaner, now resolved, Nephrology signed off #Acute cystitis; continue IV Rocephin , urine cultures negative #History of bladder cancer and left kidney cancer; status post left nephrectomy; #Controlled diabetes mellitus type 2 with hemoglobin A1c of 5.6%; continue insulin sliding scale with hypoglycemia protocol; continue monitoring #Hypothyroidism; continue levothyroxine; continue monitoring #Sick sinus syndrome; status post permanent pacemaker; no active issues; continue monitoring Urine cultures negative Date of Service: Jul 19, 2024 Billing Provider: CORAZON FAJARDO MD Common Visit Codes: 47042-SNE/OBS DISCH DAY >30min CORAZON FAJARDO MD Jul 19, 2024 10:47
[2024-07-19 12:39] VITALS: BP 121/89; PULSE 55; RESP 18; TEMP 97.4; O2SAT 99
[2024-07-19 12:46] VITALS: BP 121/89; PULSE 55; RESP 18; TEMP 36.3; O2SAT 99
== END 2024-07-19 14:43 | disposition home or self-care (01) | DRG 660 ==
LOC: ER 06:25 → TELE 11:07 → TELE-WESTW 22:18 → WEST WING 07-14 11:15
PROVIDERS: ADMIT Internal Medicine; ATTEND Family Medicine
PROC: 0T9330Z Drainage of Right Kidney Pelvis with Drainage Device, Percutaneous Approach (ICD-10-PCS; 2024-07-12)
PROC: BT111ZZ Fluoroscopy of Right Kidney using Low Osmolar Contrast (ICD-10-PCS; 2024-07-12)
PROC: 0TF6XZZ Fragmentation in Right Ureter, External Approach (ICD-10-PCS; 2024-07-15)
PROC: BT111ZZ Fluoroscopy of Right Kidney using Low Osmolar Contrast (ICD-10-PCS; 2024-07-15)
PROC: 0TP5X0Z Removal of Drainage Device from Kidney, External Approach (ICD-10-PCS; 2024-07-17)
PROC: 0TC68ZZ Extirpation of Matter from Right Ureter, Via Natural or Artificial Opening Endoscopic (ICD-10-PCS; 2024-07-17)
PROC: BT1D1ZZ Fluoroscopy of Right Kidney, Ureter and Bladder using Low Osmolar Contrast (ICD-10-PCS; 2024-07-17)
PROC: 0T768DZ Dilation of Right Ureter with Intraluminal Device, Via Natural or Artificial Opening Endoscopic (ICD-10-PCS; principal; 2024-07-17 08:14)
DX: N13.6 Pyonephrosis (principal); E87.20 Acidosis, unspecified; N30.01 Acute cystitis with hematuria; Q60.0 Renal agenesis, unilateral; N17.9 Acute kidney failure, unspecified; E03.9 Hypothyroidism, unspecified; I49.5 Sick sinus syndrome; N18.32 Chronic kidney disease, stage 3b; E11.22 Type 2 diabetes mellitus with diabetic chronic kidney disease; Z85.51 Personal history of malignant neoplasm of bladder; Z90.49 Acquired absence of other specified parts of digestive tract; Z79.84 Long term (current) use of oral hypoglycemic drugs; Z85.528 Personal history of other malignant neoplasm of kidney; Z90.5 Acquired absence of kidney; Z83.3 Family history of diabetes mellitus; Z95.0 Presence of cardiac pacemaker
CPT/HCPCS: 36415; 50432; 74018; 74176; 74425; 76000; 76775; 76942; 80048; 80053; 80061; 81001; 82306; 82360; 82570; 82962; 83036; 83970; 84100; 84154; 84156; 84300; 84443; 85025; 85610; 85730; 86850; 86900; 86901; 87086; 93005; 99152; G0378; J2003; J2250; J2405; J2704; Q9965